=== PATIENT | female | born 1995 | race Asian ===

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

== ENCOUNTER 2017-05-16 12:36 | Emergency (ER) | payer OTHER ==
[2017-05-16 13:31] VITALS: BP 111/66
--- NOTE | 2017-05-16 14:18 | UC ---
Skin Complaint HPI - HPI Summary HPI Summary: PT presents with 10 days lesion to right lower inner lip. Pt states when started was uncomfortable, but has since improved. Pt states has been applying OTC oral mouthwash to lesion. States no longer painful, but is still present. Pt denies sore throat, fever, chills, rash. No cp, sob, abd pain. No h/o similar. No h/o lesions. Pt denies h/o herpes lesions. Pt is a [employer] student, states increased stress. Pt has not seen anyone for these lesions. Pt's medications reviewed this visit - History of Current Complaint Chief Complaint: UCSkin Time Seen by Provider: 05/16/17 13:57 Stated Complaint: MASS ON LIP Hx Obtained From: Patient Hx Last Menstrual Period: 04/21/17 Onset/Duration: Gradual Onset Skin Exposure Onset/Duration: Weeks Ago Onset Severity: Moderate Current Severity: Mild Pain Intensity: 1 Location: Discrete Aggravating Factor(s): Touch Alleviating Factor(s): Nothing Associated Signs & Symptoms: Positive: Negative - Allergy/Home Medications Allergies/Adverse Reactions: Allergies Allergy/AdvReac Type Severity Reaction Status Date / Time Shellfish Allergy Allergy Anaphylatic Verified 05/16/17 12:54 Shock Tree Nuts Allergy Anaphylatic Verified 05/16/17 12:54 Shock PEANUTS Allergy Anaphylatic Uncoded 05/16/17 12:54 Shock Review of Systems Constitutional: Negative Skin: Other - right lower lip Eyes: Negative ENT: Negative All Other Systems Reviewed And Are Negative: Yes PMH/Surg Hx/FS Hx/Imm Hx Previously Healthy: Yes - Surgical History Surgical History: Yes Surgery Procedure, Year, and Place: WISDOM TEETH EXTRACTION - Family History Known Family History: Positive: Cardiac Disease - Social History Occupation: Student Lives: Dormitory/Roommates Alcohol Use: None Substance Use Type: None Smoking Status (MU): Never Smoked Tobacco - Immunization History Most Recent Influenza Vaccination: 2016 Most Recent Tetanus Shot: UTD Physical Exam Triage Information Reviewed: Yes Appearance: Well-Appearing, No Pain Distress, Well-Nourished Vital Signs: Initial Vital Signs Temp 99.5 F 05/16/17 12:49 Pulse 112 05/16/17 12:49 Resp 16 05/16/17 12:49 BP 111/66 05/16/17 12:49 Pulse Ox 100 05/16/17 12:49 Vital Signs Reviewed: Yes Eye Exam: Normal Eyes: Positive: Conjunctiva Clear ENT Exam: Normal ENT: Positive: Pharynx normal, Nasal congestion, TMs normal, Other - right lower , inner lip. Pt with focal area of swelling 3cm. Small vesicle appearance mobile not firm no bleeding drainage. mild TTP Pt without other lesions in mouth Dental Exam: Normal Neck exam: Normal Neck: Positive: Supple Respiratory Exam: Normal Respiratory: Positive: Chest non-tender, Lungs clear, Normal breath sounds, No respiratory distress Cardiovascular Exam: Normal Cardiovascular: Positive: RRR, No Murmur, Pulses Normal Abdominal Exam: Normal Abdomen Description: Positive: Nontender, No Organomegaly, Soft Bowel Sounds: Positive: Present Musculoskeletal Exam: Normal Musculoskeletal: Positive: Strength Intact Neurological Exam: Normal Neurological: Positive: Alert Psychological Exam: Normal Skin Exam: Normal Course/Dx - Course Course Of Treatment: Pt with oral lesion lower right buccal membrane. d/w pt - suspect lesion related to herpes virus. Will draw labs. start valtrex. had extensive conversation with pt regarding herpes virus syndrome. Pt will f/u with [facility]. return precautions discussed. PT comfortable and in agreement with plan - Diagnoses Provider Diagnoses: oral lesion Discharge - Discharge Plan Condition: Stable Disposition: HOME Prescriptions: ValACYclovir (*) [Valtrex 1 GM(*)] 1 gm PO BID #14 tab Patient Education Materials: Oral Herpes Simplex Virus Infections (ED) Referrals: No Primary Care Phys,NOPCP [Primary Care Provider] - [facility] [Outside] Additional Instructions: - The doctor that evaluated you today thinks your lip lesions is caused by a non -sexually transmitted strain of the herpes virus. You had bloodwork drawn today for further evaluation of this. - You have been started on the appropriate anti-viral medication - Stay well hydrated. Drink plenty of non-alcoholic, non-caffinated beverages - These infections are spread by secretions - oral sputum, people coughing etc - okay to alternate ibuprofen (Advil, motrin) and Tylenol every 3 hours as needed for pain - It is recommended you contact [facility] to schedule a follow-up appointment in the next 3-5 days - If you develop fevers, chills, headache, rash, pain or any other concerns - contact [facility] or go to the emergency department
[2017-05-18 15:07] LABS: Herpes Simplex Virus I IgG AB Negative (Negative); Herpes Simplex Virus II IgG AB Negative (Negative)
[2017-05-18 19:25] LABS: Herpes Simplex IgM Screen Negative (Negative)
== END 2017-05-16 14:30 | disposition home or self-care (01) ==
LOC: UCEAST 12:36
DX: K13.70 Unspecified lesions of oral mucosa (principal)
CPT/HCPCS: 86694; 86695; 86696; 99212; G0463

== ENCOUNTER 2017-05-21 17:39 | Emergency (ER) | payer OTHER ==
[2017-05-21] MEDS ORDERED: Tetracaine 0.5% OPTH.SOL 4 ML* 1 DROP BTL BOTH EYES ONE (17:45)
[2017-05-21] MEDS ORDERED: Fluorescein Sodium TOPICAL* 1 MG TEST OPHTHALMIC ONE (17:45)
[2017-05-21 17:46] VITALS: BP 108/65
--- NOTE | 2017-05-21 17:51 | UC ---
Eye Complaint HPI - HPI Summary HPI Summary: Pt presents with mother with multiple complaints. 1) She complains of a productive cough over the last 4-5 days. She has been using her at home nebulizer when she gets SOB with good relief. Has felt feverish at times. Denies sinus congestion, chest pain, earache, ST, abdominal pain, N/V/D/C. She tells me that she has had "walking pneumonia" twice in the past 4-5 years. 2) She complains of b/l eye redness and purulent drainage since this morning. She does not wear contacts and has not been around any metals, love, chemicals , or debris. No recent travel. Denies vision impairment. 3) She complains of a flesh colored growth on her bottom lip, first noticed about 3 weeks ago. She tells me that she was seen by a provider and given valacyclovir, which she has taken for 5 days with no change in her symptoms. There is mild pain. Denies redness, drainage, or bleeding. - History of Current Complaint Chief Complaint: UCEye Stated Complaint: EYE IRRITATION Time Seen by Provider: 05/21/17 17:45 Hx Obtained From: Patient Hx Last Menstrual Period: 04/21/17 Onset/Duration: Sudden Onset Severity Initially: Moderate Severity Currently: Moderate Pain Intensity: 5 Pain Scale Used: 0-10 Numeric Location of Injury: Conjunctiva Aggravating Factor(s): Blinking Alleviating Factor(s): Nothing Associated Signs And Symptoms: Positive: Drainage (Purulent) - Allergies/Home Medications Allergies/Adverse Reactions: Allergies Allergy/AdvReac Type Severity Reaction Status Date / Time Shellfish Allergy Allergy Anaphylatic Verified 05/16/17 12:54 Shock Tree Nuts Allergy Anaphylatic Verified 05/16/17 12:54 Shock PEANUTS Allergy Anaphylatic Uncoded 05/16/17 12:54 Shock PMH/Surg Hx/FS Hx/Imm Hx Previously Healthy: Yes Respiratory History: Asthma - Surgical History Surgical History: Yes Surgery Procedure, Year, and Place: WISDOM TEETH EXTRACTION - Family History Known Family History: Positive: Cardiac Disease - Social History Occupation: Student Lives: Dormitory/Roommates Alcohol Use: None Substance Use Type: None Smoking Status (MU): Never Smoked Tobacco - Immunization History Most Recent Influenza Vaccination: 2016 Most Recent Tetanus Shot: UTD Review of Systems Constitutional: Fever Skin: Negative Eyes: Drainage, Eye Redness ENT: Other - Growth on bottom lip Respiratory: Shortness Of Breath, Cough Cardiovascular: Negative Gastrointestinal: Negative Genitourinary: Negative Neurovascular: Negative Musculoskeletal: Negative Neurological: Negative Psychological: Negative All Other Systems Reviewed And Are Negative: Yes Physical Exam Triage Information Reviewed: Yes Appearance: Well-Appearing, Well-Nourished Vital Signs Reviewed: Yes Eyes: Positive: Conjunctiva Inflamed, Discharge - Purulent discharge in the corners of both eyes., Other: - EOMI. PERRLA. OD/OS/OU 20/20. Fluorescein exam was performed and no dye uptake was appreciated in right or left eye. ENT: Positive: Hearing grossly normal, Pharynx normal, TMs normal, Uvula midline. Negative: Pharyngeal erythema, Nasal congestion, Nasal drainage, TM bulging, TM dull, TM red, Tonsillar swelling, Tonsillar exudate, Sinus tenderness Dental: Positive: Other: - Approx 1cm linear area of mild erythema and edema on the lower mucosa of her lateral bottom lip. There is no ulceration, discharge, or bleeding.. Negative: Percussion Tenderness @, Gross Decay/Caries @, Dental Fracture @, Cellulitis @, Bleeding Neck: Positive: Supple, Nontender, No Lymphadenopathy Respiratory: Positive: Chest non-tender, Lungs clear, No respiratory distress, No accessory muscle use, Wheezing - Throughout Cardiovascular: Positive: RRR, No Murmur, Pulses Normal Neurological: Positive: Alert Psychological: Positive: Age Appropriate Behavior Skin: Negative: rashes, significant lesion(s) Eye Complaint Course/Dx - Course Course Of Treatment: 1) WNL eye exam. Fluorescein exam was performed and no dye uptake was appreciated in right or left eye. Tetracaine drops provided good relief. Cipro drops given at clinic today for use TID for 5-7 days. 2) CXR No radiographic evidence of acute cardiopulmonary disease. Continue at home nebulizer prn cough/sob. 3) Nonhealing aphthous stomatitis - triamcinolone topical paste BID - Differential Dx/Diagnosis Differential Diagnosis/HQI/PQRI: Conjunctivitis, Corneal Abrasion, Keratitis, Other - Pneumonia. Bronchitis. Asthma. aphthous stomatitis Provider Diagnoses: Conjunctivitis b/l. aphthous stomatitis. Bronchitis Discharge - Discharge Plan Condition: Stable Disposition: HOME Prescriptions: Triamcinolone Acetonide (Mouth [Triamcinolone Acetonide] 0.1 % MT BID #1 tube Patient Education Materials: Canker Sores (ED), Conjunctivitis (ED) Referrals: No Primary Care Phys,NOPCP [Primary Care Provider] - Additional Instructions: 1) Ciprofloxacin one drop each eye three times a day for 5-7 days or until resolved. Use no longer than 7 days 2) Continue using your nebulizer as needed at home for coughing and shortness of breath 3) Triamcinolone 01.% topical paste for use on the sore in your mouth twice a day for no more than 7 days If you develop a fever, SOB, chest pain, new or worsening symptoms - please call your PCP or go to the ED.
[2017-05-21] MEDS ORDERED: Ciprofloxacin 0.3% OPTH.SOL* 2.5 ML BTL ONE (18:33)
[2017-05-21] MEDS ORDERED: Ciprofloxacin 0.3% OPTH.SOL* 2.5 ML BTL BOTH EYES ONE (18:33)
--- NOTE | 2017-05-21 18:50 | RAD ---
INDICATION: Cough COMPARISON: None TECHNIQUE: PA and lateral views of the chest were obtained. FINDINGS: The heart and mediastinum are normal in size and contour. The lungs are grossly clear. There is no evidence of large pleural effusion. Visualized bones are normal for the patient's age. There is no radiographic evidence of free air beneath the diaphragm IMPRESSION: No radiographic evidence of acute cardiopulmonary disease.
== END 2017-05-21 18:55 | disposition home or self-care (01) ==
LOC: UCEAST 17:39
DX: H10.9 Unspecified conjunctivitis (principal); K12.0 Recurrent oral aphthae; J40 Bronchitis, not specified as acute or chronic
CPT/HCPCS: 71020; 99212; A9270-GY; G0463

== ENCOUNTER 2017-05-28 15:08 | Emergency (ER) | payer OTHER ==
[2017-05-28 15:44] VITALS: BP 101/61
--- NOTE | 2017-05-28 17:11 | UC ---
Nico Carrillo SooYoung, scribed for Ryan Mercer MD on 05/28/17 at 1606 . Skin Complaint HPI - HPI Summary HPI Summary: A 22 y/o F presents to [facility] c/o sore to lower lip intial onset approx one month ago, but worsening recently. Pt was seen at [facility] on 05/16 and given ABX and cream. She states the ABX did not help her, but the cream did start to make the sore smaller. Recently, the sore has become more painful. Aggravating factors: eating. - History of Current Complaint Chief Complaint: [facility] Time Seen by Provider: 05/28/17 16:03 Stated Complaint: LIP INJURY Hx Obtained From: Patient, Family/Wildlife Technician Hx Last Menstrual Period: 05/01/17 Onset/Duration: Gradual Onset, Lasting Weeks, Still Present Timing: Constant Onset Severity: Moderate Current Severity: Moderate Pain Intensity: 5 Pain Scale Used: 0-10 Numeric Location: Face - R-side lower lip Character: Pain Aggravating Factor(s): Touch, Other - eating - Allergy/Home Medications Allergies/Adverse Reactions: Allergies Allergy/AdvReac Type Severity Reaction Status Date / Time Shellfish Allergy Allergy Anaphylatic Verified 05/16/17 12:54 Shock Tree Nuts Allergy Anaphylatic Verified 05/16/17 12:54 Shock PEANUTS Allergy Anaphylatic Uncoded 05/16/17 12:54 Shock Review of Systems Constitutional: Negative Skin: Other - sore to R lower lip All Other Systems Reviewed And Are Negative: Yes PMH/Surg Hx/FS Hx/Imm Hx Previously Healthy: Yes Cardiovascular History: Other Other Cardiovascular History: neg: HTN Respiratory History: Asthma - Surgical History Surgical History: Yes Surgery Procedure, Year, and Place: WISDOM TEETH EXTRACTION - Family History Known Family History: Positive: Cardiac Disease - Social History Occupation: Student Lives: With Family Alcohol Use: None Substance Use Type: None Smoking Status (MU): Never Smoked Tobacco - Immunization History Most Recent Influenza Vaccination: 2016 Most Recent Tetanus Shot: UTD Physical Exam Triage Information Reviewed: Yes Appearance: Well-Appearing, No Pain Distress Vital Signs: Initial Vital Signs Temp 98.8 F 05/28/17 15:39 Pulse 79 05/28/17 15:39 Resp 15 05/28/17 15:39 BP 101/61 05/28/17 15:39 Pulse Ox 100 11/26/17 15:39 Vital Signs Reviewed: Yes Eyes: Positive: Other: - EOMI, TRIPP ENT Exam: Normal Neck: Positive: Supple, Nontender Respiratory: Positive: Lungs clear, Normal breath sounds Cardiovascular: Positive: RRR Abdomen Description: Positive: Nontender, Soft Bowel Sounds: Positive: Present Musculoskeletal Exam: Normal Musculoskeletal: Positive: ROM Intact Neurological Exam: Normal Neurological: Positive: Alert - A&Ox3, Muscle Tone Normal Psychological: Positive: Normal Response To Family, Age Appropriate Behavior Skin: Positive: Other - On R lower lip there is a papule that is 8mm by 4mm, proximal aspect is translucent. Otherwise, skin is warm, color reflects adequate perfusion, dry. Course/Dx - Course Course Of Treatment: A 22 y/o F presents to [facility] c/o sore to lower lip intial onset approx one month ago, but worsening recently. Pt was seen at [facility] on 05/16 and given ABX and cream. She states the ABX did not help her, but the cream did start to make the sore smaller. Recently, the sore has become more painful. Aggravating factors: eating. Blood pressure is within normal limits. Medications reviewed. PROBABLE MUCOCELE. THIS WAS DISCUSSED WITH THE PATIENT AND HER MOTHER. SHE WILL F/U WITH ENT EITHER AT HOME ([place]) OR HERE IN [place]. - Diagnoses Provider Diagnoses: LOWER LIP SWELLING. Discharge - Discharge Plan Condition: Stable Disposition: HOME Referrals: No Primary Care Phys,NOPCP [Primary Care Provider] - [facility] [Provider Group] Additional Instructions: FOLLOW UP WITH ENT EITHER HERE IN [place] OR AT HOME FOR WHAT APPEARS TO BE A MUCOCELE ON YOUR LOWER LIP. GET RECHECKED FOR ANY WORSENING OF YOUR CONDITION OR QUESTIONS OR CONCERNS. The documentation as recorded by the Nico manzo SooYoung accurately reflects the service I personally performed and the decisions made by me, Ryan Mercer MD.
== END 2017-05-28 16:28 | disposition home or self-care (01) ==
LOC: UCEAST 15:08
DX: R22.0 Localized swelling, mass and lump, head (principal)
CPT/HCPCS: 99211; G0463

== ENCOUNTER 2017-10-25 12:22 | Emergency (ER) | payer OTHER ==
[2017-10-25 12:38] VITALS: BP 127/79
--- NOTE | 2017-10-25 14:06 | ED ---
Influenza-Like Illness - HPI Summary HPI Summary: 22 yo maur[place] female h/o asthma c/o cough and SOB x few days associated with body aches and chills x 1 day, sx worsening in spite of taking her rescue inhaler - History of Current Complaint Chief Complaint: UCRespiratory Time Seen by Provider: 10/25/17 13:15 Severity: Moderate Associated Signs & Symptoms: Negative, Myalgia, Cough - Allergy/Home Medications Allergies/Adverse Reactions: Allergies Allergy/AdvReac Type Severity Reaction Status Date / Time shellfish derived Allergy Anaphylatic Verified 10/25/17 12:39 Shock Tree Nuts Allergy Anaphylatic Verified 10/25/17 12:39 Shock PEANUTS Allergy Anaphylatic Uncoded 10/25/17 12:39 Shock Home Medications: Home Medications EPINEPHrine [Epipen] 0.3 mg IJ 10/25/17 [History] PMH/Surg Hx/FS Hx/Imm Hx Previously Healthy: Yes Endocrine/Hematology History: Denies: Hx Diabetes, Hx Thyroid Disease Cardiovascular History: Denies: Hx Hypertension Respiratory History: Reports: Hx Asthma Denies: Hx Chronic Obstructive Pulmonary Disease (COPD) GI History: Denies: Hx Ulcer - Surgical History Surgery Procedure, Year, and Place: WISDOM TEETH EXTRACTION Infectious Disease History: No Infectious Disease History: Denies: Hx Clostridium Difficile, Hx Hepatitis, Hx Human Immunodeficiency Virus (HIV), Hx of Known/Suspected MRSA, History Other Infectious Disease, Traveled Outside the [place] in Last 30 Days - Family History Known Family History: Positive: Cardiac Disease - Social History Alcohol Use: None Substance Use Type: Reports: None Hx Tobacco Use: No Smoking Status (MU): Never Smoked Tobacco Review of Systems Positive: Chills Eyes: Negative ENT: Negative Cardiovascular: Negative Positive: Shortness Of Breath, Cough Gastrointestinal: Negative Musculoskeletal: Negative Skin: Negative Neurological: Negative All Other Systems Reviewed And Are Negative: Yes Physical Exam Triage Information Reviewed: Yes Vital Signs On Initial Exam: Initial Vitals Temp Pulse Resp BP Pulse Ox 36.6 C 100 18 127/79 99 10/25/17 12:35 10/25/17 12:35 10/25/17 12:35 10/25/17 12:35 10/25/17 12:35 Vital Signs Reviewed: Yes Appearance: Positive: No Pain Distress Skin: Positive: Warm Eyes: Positive: Normal ENT: Positive: Normal ENT inspection Neck: Positive: Supple Respiratory/Lung Sounds: Positive: Rhonchi - with cough. Negative: Rales, Stridor, Wheezes Cardiovascular: Positive: Normal, RRR Abdomen Description: Positive: Nontender Musculoskeletal: Positive: Normal Neurological: Positive: Normal Diagnostics - Vital Signs Vital Signs Temp Pulse Resp BP Pulse Ox 10/25/17 12:35 36.6 C 100 18 127/79 99 - Laboratory Lab Statement: Any lab studies that have been ordered have been reviewed, and results considered in the medical decision making process. Flu Symptom Course/Dx - Course Course Of Treatment: rapid flu negative, take meds as directed for asthma exacerbation - Diagnoses Provider Diagnoses: Asthma exacerbation, Cough Discharge - Sign-Out/Discharge Documenting (check all that apply): Discharge/Admit/Transfer - Discharge Plan Condition: Stable Disposition: HOME Prescriptions: Azithromycin TAB* [Zithromax TAB (Z-IGNACIO) 250 mg #6 tabs] 2 tab PO .TODAY, THEN 1 DAILY #1 ignacio predniSONE TAB* [Deltasone TAB*] 20 mg PO DAILY 5 Days #5 tab Patient Education Materials: Asthma (ED) Referrals: No Primary Care Phys,NOPCP [Primary Care Provider] - Additional Instructions: take medication as directed - Billing Disposition and Condition Condition: STABLE Disposition: HOME
== END 2017-10-25 14:24 | disposition home or self-care (01) ==
LOC: UCEAST 12:22
DX: J45.901 Unspecified asthma with (acute) exacerbation (principal); R05 Cough; M79.1 Myalgia
CPT/HCPCS: 87502; 99212; G0463

== ENCOUNTER 2017-12-14 18:02 | Emergency (ER) | payer OTHER ==
[2017-12-14 21:15] LABS: ABS Basophils 0.1 10^3/ul (0-0.2); ABS Eosinophils 0.2 10^3/ul (0-0.6); ABS Lymphocytes 2.2 10^3/ul (1.0-4.8); ABS Monocytes 0.5 10^3/ul (0-0.8); ABS Neutrophils 3.8 10^3/ul (1.5-7.7); ABS Nucleated RBC 0 10^3/ul; Eosinophil % 2.5 % (0-6); Hematocrit 42 % (35-47); Hemoglobin 14.2 g/dl (12.0-16.0); Lymphocyte % 32.6 % (25-47); Mean Corpuscular HGB Conc 34 g/dl (31-36); Mean Corpuscular Hemoglobin 29 pg (27-31); Mean Corpuscular Volume 84 fL (80-97); Mean Platelet Volume 8.3 um3 (7.4-10.4); Nucleated Red Blood Cells % 0.1; Platelet Count 236 10^3/ul (150-450); Red Blood Count 4.96 10^6/ul (4.00-5.40); Red Cell Distribution Width 13 % (10.5-15); White Blood Count 6.8 10^3/ul (3.5-10.8)
[2017-12-14 22:53] VITALS: BP 101/56
--- NOTE | 2017-12-15 05:43 | ED ---
Tracey Carrillo Elizabeth, scribed for Avinash Keene MD on 12/14/17 at 2058 . HPI Chest Pain - HPI Summary HPI Summary: This patient is a 22 year old F presenting to [facility] accompanied by her mother with a chief complaint of severe chest pain and palpitations starting at 18:00 this evening while in the shower.. The patient reports that the pain began suddenly when she was in the shower. The patient notes that her resting HR is typically around 80 bpm, but when she took her pulse at 18:00 was 129 bpm. Patient reports hx of low BP. The patient rates the pain 2/10 in severity. Symptoms aggravated by nothing. Symptoms alleviated by nothing. Patient reports fatigue. The patient also notes that she feels like she has developed new food allergies and reports increased dry mouth and swelling in her throat. Patient denies change in diet. - History of Current Complaint Chief Complaint: EDChestPainROMI Time Seen by Provider: 12/14/17 20:28 Hx Obtained From: Patient, Family/Supervisor Machine Workers - patient's mother Hx Last Menstrual Period: 10/23/17 Onset/Duration: Started Hours Ago, Atraumatic, Still Present Time of Onset: 18:00 Timing: Lasting Hours Initial Severity: Severe Current Severity: Mild Pain Intensity: 2 Pain Scale Used: 0-10 Numeric Character: Fast Aggravating Factor(s): Nothing Alleviating Factor(s): Nothing Associated Signs and Symptoms: Positive: Chest Pain, Other: - fatigue - Allergy/Home Medications Allergies/Adverse Reactions: Allergies Allergy/AdvReac Type Severity Reaction Status Date / Time sesame seed Allergy Anaphylatic Verified 12/14/17 18:15 Shock shellfish derived Allergy Anaphylatic Verified 12/14/17 18:15 Shock Tree Nuts Allergy Anaphylatic Verified 12/14/17 18:15 Shock PEANUTS Allergy Anaphylatic Uncoded 10/25/17 12:39 Shock Home Medications: Home Medications Cholecalciferol TAB* [Vitamin D TAB*] 1,000 unit PO DAILY 12/14/17 [History Confirmed 12/14/17] EPINEPHrine SYR* [EPINEPHphrine SYR*] 0.1 mg IM ONCE PRN 12/14/17 [History Confirmed 12/14/17] Ibuprofen TAB* [Advil TAB*] 200 mg PO Q6H PRN 12/14/17 [History Confirmed ] Levalbuterol HFA INHALER* [Xopenex Hfa Inhaler*] 2 puff INH QID PRN 12/14/17 [ History Confirmed 12/14/17] diPHENhydraMINE PO* [Benadryl PO 25 MG TAB*] 25 mg PO Q6H PRN 12/14/17 [History Confirmed 12/14/17] PMH/Surg Hx/FS Hx/Imm Hx Endocrine/Hematology History: Denies: Hx Diabetes, Hx Thyroid Disease Cardiovascular History: Denies: Hx Hypertension Respiratory History: Reports: Hx Asthma Denies: Hx Chronic Obstructive Pulmonary Disease (COPD) GI History: Denies: Hx Ulcer - Surgical History Surgery Procedure, Year, and Place: WISDOM TEETH EXTRACTION Infectious Disease History: No Infectious Disease History: Denies: Hx Clostridium Difficile, Hx Hepatitis, Hx Human Immunodeficiency Virus (HIV), Hx of Known/Suspected MRSA, History Other Infectious Disease, Traveled Outside the [place] in Last 30 Days - Family History Known Family History: Positive: Cardiac Disease, Other - thyroid problems - Social History Alcohol Use: None Substance Use Type: Reports: None Hx Tobacco Use: No Smoking Status (MU): Never Smoked Tobacco Review of Systems Negative: Fever ENT: Other - dry mouth Positive: Sore Throat - throat tightness Positive: Palpitations - fast HR, Chest Pain All Other Systems Reviewed And Are Negative: Yes Physical Exam - Summary Physical Exam Summary: Appearance: Well-appearing, no distress, Well-nourished Skin: Warm, color reflects adequate perfusion Head: Normal Head/Face inspection Eyes: Conjunctiva clear ENT: Normal inspection Neck: Supple, no nodes, no JVD. Respiratory: Lungs clear, Normal breath sounds, no respiratory distress Cardio: RRR, No murmur, pulses normal, brisk capillary refill Abdomen: soft, nontender, no guarding, no rebound Bowel sounds: present Musculoskeletal: Strength Intact/ ROM intact. No calf tenderness. No edema. Neuro: Alert, muscle tone normal, facial symmetry, speech normal, sensory/motor intact Psychological: Normal Triage Information Reviewed: Yes Vital Signs On Initial Exam: Initial Vitals Temp Pulse Resp BP Pulse Ox 98.5 F 94 16 128/97 98 12/14/17 18:09 12/14/17 18:09 12/14/17 18:09 12/14/17 18:09 12/14/17 18:09 Vital Signs Reviewed: Yes Diagnostics - Vital Signs Vital Signs Temp Pulse Resp BP Pulse Ox 12/14/17 20:20 89 12/14/17 18:09 98.5 F 94 16 128/97 98 - Laboratory Lab Results: Lab Results 12/14/17 12/14/17 Range/Units 21:06 21:06 WBC 6.8 (3.5-10.8) 10^3/ul RBC 4.96 (4.00-5.40) 10^6/ul Hgb 14.2 (12.0-16.0) g/dl Hct 42 (35-47) % MCV 84 (80-97) fL MCH 29 (27-31) pg MCHC 34 (31-36) g/dl RDW 13 (10.5-15) % Plt Count 236 (150-450) 10^3/ul MPV 8.3 (7.4-10.4) um3 Neut % (Auto) 55.9 (38-83) % Lymph % (Auto) 32.6 (25-47) % [place] % (Auto) 7.8 H (0-7) % Eos % (Auto) 2.5 (0-6) % Baso % (Auto) 1.2 (0-2) % Absolute Neuts (auto) 3.8 (1.5-7.7) 10^3/ul Absolute Lymphs (auto) 2.2 (1.0-4.8) 10^3/ul Absolute Monos (auto) 0.5 (0-0.8) 10^3/ul Absolute Eos (auto) 0.2 (0-0.6) 10^3/ul Absolute Basos (auto) 0.1 (0-0.2) 10^3/ul Absolute Nucleated RBC 0 10^3/ul Nucleated RBC % 0.1 Sodium 136 (135-145) mmol/L Potassium 3.8 (3.5-5.0) mmol/L Chloride 102 (101-111) mmol/L Carbon Dioxide 28 (22-32) mmol/L Anion Gap 6 (2-11) mmol/L BUN 17 (6-24) mg/dL Creatinine 0.87 (0.51-0.95) mg/dL Est GFR ( Amer) 106.8 (>60) Est GFR (Non-Af Amer) 83.0 (>60) BUN/Creatinine Ratio 19.5 (8-20) Glucose 91 (70-100) mg/dL Calcium 9.7 (8.6-10.3) mg/dL Magnesium 1.8 L (1.9-2.7) mg/dL Total Bilirubin 0.30 (0.2-1.0) mg/dL AST 17 (13-39) U/L ALT 10 (7-52) U/L Alkaline Phosphatase 47 (34-104) U/L Troponin I 0.00 (<0.04) ng/mL Total Protein 6.9 (6.4-8.9) g/dL Albumin 3.9 (3.2-5.2) g/dL Globulin 3.0 (2-4) g/dL Albumin/Globulin Ratio 1.3 (1-3) TSH 1.65 (0.34-5.60) mcIU/mL Result Diagrams: 12/14/17 21:06 12/14/17 21:06 Lab Statement: Any lab studies that have been ordered have been reviewed, and results considered in the medical decision making process. - EKG 18:13 Cardiac Rate: NL - at 82 bpm EKG Rhythm: Sinus Rhythm EKG Interpretation: NSR, nml axis, nml interval, no ST or T wave changes Re-Evaluation - Re-Evaluation First Eval Change: Improved - Pt with no tachycardia in the ED. pt Hr 80's, Pt continues to be asymptomatic. I suspect some component of anxiety, however pt with plan to f/u with her PCP in 2-3 days for f/u evaluation on arrival home. Chest Pain Course/Dx - Chest Pain Differential Diagnosis/HQI/PQRI: ACS, Angina, Chest Wall, GI Disease, Pulmonary Embolism - Diagnoses Provider Diagnoses: Palpitations Discharge - Sign-Out/Discharge Documenting (check all that apply): Discharge/Admit/Transfer - Discharge Plan Condition: Stable Disposition: HOME Discharge Disposition Comment: discharge home Patient Education Materials: Heart Palpitations (ED) Referrals: [facility] [place] PHYSICIAN REFERRAL [Outside] - 2 Days Additional Instructions: Follow up with primary care physician in 2-3 days. Return to the emergency department with any new or worsening symptoms. - Billing Disposition and Condition Condition: STABLE Disposition: Home The documentation as recorded by the Tracey manzo Elizabeth accurately reflects the service I personally performed and the decisions made by me, Avinash Keene MD.
== END 2017-12-14 22:51 | disposition home or self-care (01) ==
LOC: ED 18:02
DX: R00.2 Palpitations (principal)
CPT/HCPCS: 36415; 80053; 83735; 84443; 84484; 85025; 93005; 99282

== ENCOUNTER 2018-03-27 17:55 | Emergency (ER) | payer OTHER ==
--- OUTSIDE RECORDS SUMMARY | 2018-03-27 18:01 | XMS REPORT ---
:1995 External Reference #:[id number] Author Organization [facility] Address [address] [place] [address] Phone [phone] Care Team Providers Name Role Phone Trevor Abel MD Care Team Information [employer] Unavailable Payers Type Date Identification Numbers Payment Provider Subscriber Commercial Policy Number: [id number] [employer] Haleigh Sev[employer] Number: [id number] [address] [address] PayID: [id number] [place] [address] Problems Date Description Provider Status Onset: 12/08/2017 Allergy to other foods Trevor Abel MD Active Onset: 12/22/2017 Uncomplicated moderate persistent MANDO Robbins Active asthma Onset: 12/22/2017 Allergic rhinitis MANDO Robbins Active Family History Date Family Member(s) Problem(s) Comments General Asthma General Seasonal Allergies General Allergies, Food dye's and preservatives Social History Type Date Description Comments Smoke-Free Home is smoke-free Smoke-Free Work is smoke-free Pets None Smoking Patient has never smoked Allergies, Adverse Reactions, Alerts Date Description Reaction Status Severity Comments 03/07/2018 Asmanex active Nightmares, depression, hallucination 12/08/2017 NKDA inactive Medications Medication Date Status Form Strength Qnty SIG Indications Ordering Provider Flonase 12/22 Active Suspension 27.5mcg/S 15.80 one spray in J30.89 Trevor Sensimist /2018 pray 0ml each nostril Beltran Abel MD daily Lizzeth 12/22 Active Tablets 180mg 30tab take one tab J30.89 s by mouth Beltran Abel MD daily in the morning. Auvi-Q 12/08 Active Solution 0.3mg/0.3 4unit use as Z91.018 Auto-Inject ML s directed Beltran Abel MD Xopenex HFA Active Aerosol 45mcg/Act 2 puffs Unknown /0000 every 4 as needed Xopenex Active Nebulizer 1.25mg/3M 72ml use 3 L milliliters Beltran Abel MD in nebulizer four times a day as needed asthma Epipen 2-Juan Antonio Active Solution 0.3mg/0.3 as directed Auto-Inject ML Benadryl Active Tablets 25mg 1/2 tab Unknown Allergy / every day as needed Vitamin D Active Capsules 1000Unit Unknown (Cholecalcif /0000 frances) Asmanex HFA 01/01 Hx Aerosol 100mcg/Ac 1unit 2 puff twice Z91.018 t s a day Beltran Abel MD - 03/07 Advair HFA 12/22 Hx Aerosol 230-21mcg 12uni 1 puff twice Z91.018 /Act ts a day Beltran Abel MD - 01/01 No Active 12/08 Hx Unknown Medications - 12/08 Vital Signs Date Vital Result Comment 03/07/2018 BP Systolic 100 mmHg BP Diastolic 74 mmHg Height 64 inches 5'4" Weight 134.00 lb BMI (Body Mass Index) 23.0 kg/m2 Heart Rate 82 /min Respiratory Rate 18 /min Body Temperature 98.4 F O2 % BldC Oximetry 99 % 01/01/2018 BP Systolic 104 mmHg BP Diastolic 68 mmHg Height 64 inches 5'4" Weight 134.00 lb BMI (Body Mass Index) 23.0 kg/m2 Heart Rate 100 /min Respiratory Rate 16 /min Body Temperature 97.3 F O2 % BldC Oximetry 98 % 12/22/2017 BP Systolic 102 mmHg BP Diastolic 64 mmHg Height 64 inches 5'4" Weight 134.00 lb BMI (Body Mass Index) 23.0 kg/m2 Heart Rate 84 /min Respiratory Rate 18 /min Body Temperature 99.8 F O2 % BldC Oximetry 99 % 12/08/2017 BP Systolic 105 mmHg BP Diastolic 77 mmHg Height 64 inches 5'4" Weight 134.00 lb BMI (Body Mass Index) 23.0 kg/m2 Heart Rate 88 /min Respiratory Rate 16 /min Body Temperature 97.3 F O2 % BldC Oximetry 99 % Results Test Date Test Result H/L Range Note Order 01/01/2018 Nitric Oxide <pending> Order 12/08/2017 Epinephrine Injector Training <pending> Procedures Date CPT Code Description Status 01/01/2018 66431 Nitric Oxide Gas Determination Completed 01/01/2018 52543 Nitric Oxide Gas Determination Completed 12/22/2017 18959 Nitric Oxide Gas Determination Completed 12/22/2017 71352 Nitric Oxide Gas Determination Completed 12/22/2017 57708 Allergy Tests Percutaneous W/ Allergenic Extracts Completed 12/22/2017 17311 Bronchodilation Responsiveness Spirometry Pre/Post Completed Bronchodil Adm 12/22/2017 19530 Bronchodilation Responsiveness Spirometry Pre/Post Completed Bronchodil Adm 12/08/2017 38582 Education/Training PT Self-Management Each 30Minutes Completed Indiv PT Encounters Type Date Location Provider CPT E/M Dx Office Visit 01/01/2018 11:30a MANDO Stevens 00979 Z91.018 J45.40 J30.89 Office Visit 12/22/2017 1:30p MANDO Stevens 74270 Z91.018 J45.40 J30.89 Office Visit 12/08/2017 3:30[place] [address] Z91.018 Plan of Care Future Appointment(s):06/22/2018 1:00 pm - MANDO Robbins at [place]
--- OUTSIDE RECORDS SUMMARY | 2018-03-27 18:01 | XMS REPORT ---
:1995 External Reference #:[id number] Author Organization [facility] Address [address] [place] [address] Phone [phone] Care Team Providers Name Role Phone Trevor Abel MD Care Team Information Physicians Assistant Unavailable Payers Type Date Identification Numbers Payment Provider Subscriber Commercial Policy Number: [id number] [employer] Haleigh [employer] Group Number: [id number] [address] [address] PayID: [id number] [place] [address] Problems Date Description Provider Status Onset: 12/08/2017 [...] Form Strength Qnty SIG Indications Ordering Provider Singulair 03/07 Active Tablets 10mg 30tab 10mg by Z91.018 s mouth daily Beltran Abel MD at bedtime Singulair 01/01 Active Tablets 10mg 30tab 10mg by s mouth daily Beltran Abel MD at bedtime Flonase 12/22 Active Suspension 27.5mcg/S 15.80 one spray in [address] [place] [address] Sensimist /2017 pray 0ml each nostril Beltran Abel MD daily Lizzeth 12/22 Active Tablets 180mg 30tab take one tab [facility] Allergy s by mouth Beltran Abel MD daily [...] / every day as needed Vitamin D 00 Active Capsules 1000Unit Unknown (Cholecalcif /0000 frances) Asmanex HFA 01/01 Hx Aerosol 100mcg/Ac 1unit 2 puff twice Z91.018 t s a day Beltran Abel MD - 03/07 Advair HFA 12/22 Hx Aerosol 230-21mcg 12uni 1 puff twice Z91.018 /Act ts a day Beltran Abel MD - 01/01 No Active 12/08 Hx Unknown Medications /2017 - 12/08 Vital Signs Date Vital Result [...] Procedures Date CPT Code Description Status 01/01/2018 15011 Nitric Oxide Gas Determination Completed 01/01/2018 44745 Nitric Oxide Gas Determination Completed 12/22/2017 96265 Nitric Oxide Gas Determination Completed 12/22/2017 19229 Nitric Oxide Gas Determination Completed 12/22/2017 94233 Allergy Tests Percutaneous W/ Allergenic Extracts Completed 12/22/2017 38023 Bronchodilation Responsiveness Spirometry Pre/Post Completed Bronchodil Adm 12/22/2017 31294 Bronchodilation Responsiveness Spirometry Pre/Post Completed Bronchodil Adm 12/08/2017 76539 Education/Training PT Self-Management Each 30Minutes Completed Indiv PT Encounters Type Date Location Provider CPT E/M Dx Office Visit 03/07/2018 4:30p MANDO Stevens 38637 Z91.018 J45.40 J30.89 Office Visit 01/01/2018 11:30a MANDO Stevens 43262 Z91.018 J45.40 J30.89 Office Visit 12/22/2017 1:30p MANDO Stevens 52118 Z91.018 J45.40 J30.89 Office Visit 12/08/2017 3:30[place] [address] Z91.018 Plan of Care Future Appointment(s):03/29/2018 8:30 am - Kanchan Hendricks NP at [id number] 1:00 pm - MANDO Robbins at [id number]/07/2018 - Juloi Allen, PAZ91.018 Allergy to other foodsNew Medication:Singulair 10 mgJ45.40 Moderate persistent asthma, uncomplicatedComments:Patient has discontinued use of Asmanex. Patient still has Xopenex to use for breakthrough chest symptoms. Patient will start Singulair as prescribed. Patient to make an appointment with this officein 2 weeks to see if any improvement in her breathing. At that time we will also do a PFT and Niox test.Patient to continue regular use of environmental controls.Recommend patient schedule 20-30 minute aerobic exercise on a daily basis.Follow up:2 weeks, PFT and NIOX efbpvV57.89 Other allergic rhinitis
--- NOTE | 2018-03-28 14:46 | UC ---
- Progress Note Progress Note: LWBS. NO IMAGING Discharge - Sign-Out/Discharge Documenting (check all that apply): Post-Discharge Follow Up All imaging exams completed and their final reports reviewed: No Studies - Discharge Plan Condition: Stable Disposition: LEFT WITHOUT BEING SEEN Referrals: No Primary Care Phys,NOPCP [Primary Care Provider] - - Billing Disposition and Condition Condition: STABLE Disposition: Left Without Being Seen
== END 2018-03-27 18:50 | disposition left against medical advice (07) ==
LOC: UCEAST 17:55
DX: R10.9 Unspecified abdominal pain (principal); Z53.21 Procedure and treatment not carried out due to patient leaving prior to being seen by health care provider

== ENCOUNTER 2018-05-03 11:35 | Emergency (ER) | payer OTHER ==
[2018-05-03 11:43] VITALS: BP 115/78
--- NOTE | 2018-05-03 12:07 | UC ---
Eye Complaint HPI - HPI Summary HPI Summary: 22 year old female presents stating she awoke this morning with both her eyes crusted shut. Associated with bilateral eye erythema, itching, purulent drainage , mild nasal congestion without drainage, and an occasional dry cough. She does not wear contacts. Denies fever, chills, visual disturbances, sinus pain or pressure, sore throat, ear pain, chest pain, shortness of breath, or wheezing. - History of Current Complaint Chief Complaint: UCEye Stated Complaint: EYE ISSUE COUGH Time Seen by Provider: 05/03/18 11:55 Hx Obtained From: Patient Hx Last Menstrual Period: 03/27/18 Pain Intensity: 0 - Allergies/Home Medications Allergies/Adverse Reactions: Allergies Allergy/AdvReac Type Severity Reaction Status Date / Time sesame seed Allergy Anaphylatic Verified 05/03/18 11:43 Shock shellfish derived Allergy Anaphylatic Verified 05/03/18 11:43 Shock Tree Nuts Allergy Anaphylatic Verified 05/03/18 11:43 Shock PEANUTS Allergy Anaphylatic Uncoded 05/03/18 11:43 Shock PMH/Surg Hx/FS Hx/Imm Hx Previously Healthy: Yes Respiratory History: Asthma - Surgical History Surgical History: Yes Surgery Procedure, Year, and Place: WISDOM TEETH EXTRACTION - Family History Known Family History: Positive: Cardiac Disease, Other - thyroid problems - Social History Occupation: Student Lives: Dormitory/Roommates Alcohol Use: None Substance Use Type: None Smoking Status (MU): Never Smoked Tobacco - Immunization History Most Recent Influenza Vaccination: 2016 Most Recent Tetanus Shot: UTD Review of Systems Constitutional: Negative Skin: Negative Eyes: Drainage, Eye Redness ENT: Other - mild nasal congestion Respiratory: Cough - occasion dry cough Cardiovascular: Negative Is Patient Immunocompromised?: No All Other Systems Reviewed And Are Negative: Yes Physical Exam Triage Information Reviewed: Yes Appearance: Well-Appearing, No Pain Distress, Well-Nourished Vital Signs: Initial Vital Signs Temp 98 F 05/03/18 11:41 Pulse 94 05/03/18 11:41 Resp 16 05/03/18 11:41 BP 115/78 05/03/18 11:41 Pulse Ox 100 05/03/18 11:41 Vital Signs Reviewed: Yes Eyes: Positive: Conjunctiva Inflamed - bilateral, Discharge - purulent bilateral ENT: Positive: Hearing grossly normal, Nasal congestion, TMs normal, Uvula midline. Negative: Pharyngeal erythema, Nasal drainage, Tonsillar swelling, Tonsillar exudate, Sinus tenderness Neck: Positive: Supple, Nontender, No Lymphadenopathy Respiratory: Positive: Lungs clear, Normal breath sounds, No respiratory distress Cardiovascular: Positive: RRR, No Murmur Neurological: Positive: Alert Skin Exam: Normal Eye Complaint Course/Dx - Course Course Of Treatment: 22 year old female with onset of bilateral conjunctival erythema, discharge, itching, and crusting this morning. Afebrile. Exam consistent with a bilateral bacterial conjunctivitis. Will treat with Polytrim ophthalmic 2 drops QID x 5 days. She is to follow up with PCP or at [facility] if symptoms persist. - Differential Dx/Diagnosis Provider Diagnoses: Bilateral bacterial conjunctivitis Discharge - Sign-Out/Discharge Documenting (check all that apply): Patient Departure All imaging exams completed and their final reports reviewed: No Studies - Discharge Plan Condition: Stable Disposition: HOME Prescriptions: Polymyx/Trimethoprim OPTH* [Polytrim OPHTH*] 2 drop BOTH EYES QID 5 Days #1 btl Patient Education Materials: Conjunctivitis (ED) Forms: *School Release Referrals: No Primary Care Phys,NOPCP [Primary Care Provider] - Additional Instructions: Start Polytrim Ophthalmic 2 drops both eyes 4 times a day for 5 days. Bacterial conjunctivitis is highly contagious. It is recommended that you do not attend class until you have been on the eye drops for 24 hours. Do not share washcloths or towels and be sure to wash these after each use. I would recommend that you change your pillow case each morning until you have completed your treatment to avoid reinfection. Follow up with your primary care provider or at [facility] if symptoms do not improve. - Billing Disposition and Condition Condition: STABLE Disposition: Home
== END 2018-05-03 12:26 | disposition home or self-care (01) ==
LOC: UCEAST 11:35
DX: H10.33 Unspecified acute conjunctivitis, bilateral (principal); Z91.018 Allergy to other foods; Z91.010 Allergy to peanuts; Z91.013 Allergy to seafood
CPT/HCPCS: 99212; G0463

== ENCOUNTER 2018-05-09 11:28 | Emergency (ER) | payer OTHER ==
--- NOTE | 2018-05-09 13:19 | UC ---
Respiratory Complaint HPI - HPI Summary HPI Summary: 22 y/o female presents to the urgent care c/o pt has a hx of asthma and has been coughing more than normal. pt has had increase use of inhaler. pt states about 1 week ago she began to cough and states now her inhaler is not helping with cough. pt has decreased appotite and increased hunt and feelings of being tires. pt is concerned that she has bronchitis. - History of Current Complaint Chief Complaint: UCRespiratory Stated Complaint: COUGH Time Seen by Provider: 05/09/18 13:18 Hx Obtained From: Patient Hx Last Menstrual Period: 05/04/18 Pain Intensity: 0 - Allergies/Home Medications Allergies/Adverse Reactions: Allergies Allergy/AdvReac Type Severity Reaction Status Date / Time sesame seed Allergy Anaphylatic Verified 05/09/18 11:38 Shock shellfish derived Allergy Anaphylatic Verified 05/09/18 11:38 Shock Tree Nuts Allergy Anaphylatic Verified 05/09/18 11:38 Shock PEANUTS Allergy Anaphylatic Uncoded 05/09/18 11:38 Shock Home Medications: Home Medications GuaiFENesin DM* [Robitussin DM*] 10 ml PO Q6H PRN 05/09/18 [History Confirmed ] PMH/Surg Hx/FS Hx/Imm Hx - Surgical History Surgical History: Yes Surgery Procedure, Year, and Place: WISDOM TEETH EXTRACTION - Family History Known Family History: Positive: Cardiac Disease, Other - thyroid problems - Social History Alcohol Use: None Substance Use Type: None Smoking Status (MU): Never Smoked Tobacco - Immunization History Most Recent Influenza Vaccination: 2016 Most Recent Tetanus Shot: UTD Physical Exam - Summary Physical Exam Summary: Vital Signs Reviewed: Yes General: well developed, well nourished female adolescent sitting in the examining table w/o any apparent distress Eyes: Positive: Conjunctiva Clear - PERRLA, EOMI, fundi grossly normal ENT: Positive: Normal ENT inspection, Hearing grossly normal, Pharynx normal, Nasal congestion - edematous and erythematous nasal mucosa, Nasal drainage - yellowish drainage, TMs normal. Negative: Tonsillar swelling, Tonsillar exudate Neck: Positive: Supple, Nontender, No Lymphadenopathy Respiratory: no orthopnea or dyspnea. Able to speak in full sentences, no retractions or accessory muscle use, no tripod position, stridor, or head bobbing. Positive breath sounds bilaterally. Upper posterior lungs w/ mild scattered rhonchi , no wheezing, no crackles or rales. Cardiovascular: Positive: RRR, No Murmur, Pulses Normal, Brisk Capillary Refill Abdomen Description: Positive: Nontender, No Organomegaly, Soft. Negative: CVA Tenderness (R), CVA Tenderness (L) Bowel Sounds: Positive: Present Musculoskeletal Exam: Normal Musculoskeletal: Positive: Strength Intact, ROM Intact, No Edema Neurological Exam: Normal Psychological Exam: Normal Skin Exam: Normal Triage Information Reviewed: Yes Vital Signs: Initial Vital Signs Temp 98.2 F 05/09/18 11:34 Pulse 96 05/09/18 11:34 Resp 18 05/09/18 11:34 BP 116/80 05/09/18 11:34 Pulse Ox 100 05/09/18 11:34 UC Diagnostic Evaluation - Laboratory O2 Sat by Pulse Oximetry: 100 Respiratory Course/Dx - Course Course Of Treatment: Pt with Acute bronchitis on examination. Pt Rx Z-ignacio PO and Albuterol inhaler to alleviate bronchospasm. Pt advised to increase fluid intake and eat well. if not improvement or worsening of symptoms to return to the urgent care or f/u with PCP for further management. pt understood and agreed with plan of care. - Differential Dx/Diagnosis Differential Diagnosis/HQI/PQRI: Asthma, Bronchitis, Influenza, Laryngitis, Lower Resp Infection, Sinusitis Provider Diagnoses: 1- Acute bronchitis. 2- Cough Discharge - Sign-Out/Discharge Documenting (check all that apply): Patient Departure - D/c home All imaging exams completed and their final reports reviewed: No Studies - Discharge Plan Condition: Stable Disposition: HOME Prescriptions: Azithromyxin IGNACIO (NF) [Z-Ignacio (Zithromax) 250 mg tabs #6] 2 tab PO .TODAY, THEN 1 DAILY #6 tab Benzonatate CAP* [Tessalon 100 MG CAP*] 100 mg PO TID #21 cap Patient Education Materials: Acute Bronchitis (ED) Forms: *School Release Referrals: [facility] [Outside] - 3 Days Additional Instructions: 1-Please take full course of antibiotic to avoid resistance. 2-Take Tessalon PO tabs as directed and use the albuterol inhaler to alleviate cough. Increase fluid intake, rest and eat well. 3- If symptoms do not improve or worsen or your develop SOB with fever and severe wheezing please go immediately to the ER further evaluation and treatment. 4- F/u with your PCP in 3 days for further management if not improvement of symptoms. - Billing Disposition and Condition Condition: STABLE Disposition: Home
[2018-05-09 13:46] VITALS: BP 113/77
== END 2018-05-09 13:44 | disposition home or self-care (01) ==
LOC: UCEAST 11:28
DX: J45.909 Unspecified asthma, uncomplicated (principal); R05 Cough; Z91.018 Allergy to other foods; Z91.010 Allergy to peanuts; Z91.013 Allergy to seafood
CPT/HCPCS: 99212; G0463

== ENCOUNTER 2018-12-14 19:44 | Emergency (ER) | payer OTHER ==
--- NOTE | 2018-12-14 22:58 | ED ---
Abdominal Pain/Female - HPI Summary HPI Summary: This patient is a 23 year old female presenting to [facility] with a chief complaint of abdominal pain since 6 months ago. The patient states she had been having intermittent episodes for several hours at a time since onset. The patient previously had constipation but was put on laxatives and it has resolved since. The patient states the pain is across her lower abdomen and radiates to her back. The patient rates her pain 9/10 in severity. She saw a GI specialist who told her to come here to get imaging here. - History of Current Complaint Chief Complaint: Charlene Stated Complaint: "ABDOMINAL PAIN PER PT" Time Seen by Provider: 12/14/18 22:51 Hx Obtained From: Patient Hx Last Menstrual Period: 05/04/18 Pain Intensity: 8 Pain Scale Used: 0-10 Numeric Allergies/Adverse Reactions: Allergies Allergy/AdvReac Type Severity Reaction Status Date / Time sesame seed Allergy Anaphylatic Verified 12/15/18 00:19 Shock shellfish derived Allergy Anaphylatic Verified 12/15/18 00:19 Shock Tree Nuts Allergy Anaphylatic Verified 12/15/18 00:19 Shock PEANUTS Allergy Anaphylatic Uncoded 12/15/18 00:19 Shock PMH/Surg Hx/FS Hx/Imm Hx Endocrine/Hematology History: Denies: Hx Diabetes, Hx Thyroid Disease Cardiovascular History: Denies: Hx Hypertension Respiratory History: Reports: Hx Asthma Denies: Hx Chronic Obstructive Pulmonary Disease (COPD) GI History: Denies: Hx Ulcer - Surgical History Surgery Procedure, Year, and Place: WISDOM TEETH EXTRACTION Infectious Disease History: No Infectious Disease History: Denies: Hx Clostridium Difficile, Hx Hepatitis, Hx Human Immunodeficiency Virus (HIV), Hx of Known/Suspected MRSA, History Other Infectious Disease, Traveled Outside the [place] in Last 30 Days - Family History Known Family History: Positive: Cardiac Disease, Other - thyroid problems Family History: hypothyrodism - Social History Alcohol Use: None Substance Use Type: Reports: None Hx Tobacco Use: No Smoking Status (MU): Never Smoked Tobacco Review of Systems Positive: Abdominal Pain, Other - Constipation, resolved Positive: Other - Back pain All Other Systems Reviewed And Are Negative: Yes Physical Exam - Summary Physical Exam Summary: VITAL SIGNS: Reviewed. GENERAL: Patient is a well-developed and nourished FEMALE who is lying comfortable in the stretcher. Patient is not in any acute respiratory distress. HEAD AND FACE: No signs of trauma. No ecchymosis, hematomas or skull depressions. No sinus tenderness. EYES: PERRLA, EOMI x 2, No injected conjunctiva, no nystagmus. EARS: Hearing grossly intact. Ear canals and tympanic membranes are within normal limits. MOUTH: Oropharynx within normal limits. NECK: Supple, trachea is midline, no adenopathy, no JVD, no carotid bruit, no c- spine tenderness, neck with full ROM. CHEST: Symmetric, no tenderness at palpation LUNGS: Clear to auscultation bilaterally. No wheezing or crackles. CVS: Regular rate and rhythm, S1 and S2 present, no murmurs or gallops appreciated. ABDOMEN: Soft, bilateral lower quadrant tenderness left more than right. No signs of distention. No rebound no guarding, and no masses palpated. Bowel sounds are normal. EXTREMITIES: FROM in all major joints, no edema, no cyanosis or clubbing. NEURO: Alert and oriented x 3. No acute neurological deficits. Speech is normal and follows commands. SKIN: Dry and warm Triage Information Reviewed: Yes Vital Signs On Initial Exam: Initial Vitals Temp Pulse Resp BP Pulse Ox 98 F 89 18 136/94 99 12/14/18 19:48 12/14/18 19:48 12/14/18 19:48 12/14/18 19:48 12/14/18 19:48 Vital Signs Reviewed: Yes Diagnostics - Vital Signs Vital Signs Temp Pulse Resp BP Pulse Ox 12/14/18 22:15 97.9 F 84 16 109/75 100 12/14/18 19:48 98 F 89 18 136/94 99 - Laboratory Result Diagrams: 12/14/18 23:38 12/14/18 23:38 Lab Statement: Any lab studies that have been ordered have been reviewed, and results considered in the medical decision making process. - CT Abd/Pel CT CT Interpretation Completed By: Radiologist Summary of CT Findings: No acute findings. ED Provider has reviewed this report. Abdominal Pain Fem Course/Dx - Course Course Of Treatment: This patient is a 23 year old female presenting to [facility] with a chief complaint of abdominal pain since 6 months ago. The patient states she had been having intermittent episodes for several hours at a time since onset.Abdomen Pelvis CT was unremarkable for gastrointestinal problems. A plan for discharge was discussed with the patient and she was agreeable with this plan. - Diagnoses Provider Diagnoses: Abdominal pain Discharge - Sign-Out/Discharge Documenting (check all that apply): Patient Departure - Discharge Patient Received Moderate/Deep Sedation with Procedure: No - Discharge Plan Condition: Stable Disposition: HOME Prescriptions: Dicyclomine CAP* [Bentyl CAP*] 10 mg PO TID PRN #90 cap PRN Reason: Pain Patient Education Materials: Abdominal Pain (ED) Referrals: [facility] [Provider Group] Additional Instructions: Follow up with Gastroenterology. Return to ED with any new or worsening symptoms. - Attestation Statements Document Initiated by Scribe: Yes Documenting Scribe: Aaron Ordoñez Provider For Whom Scribe is Documenting (Include Credential): Karon Pierre MD Scribe Attestation: IAaron, scribed for Karon Pierre MD on 12/15/18 at 0251. Status of Scribe Document: Ready
[2018-12-14] MEDS ORDERED: NS 0.9% 1000 ML** 1,000 ML IV ONE (23:05)
[2018-12-14] MEDS ORDERED: Ketorolac INJ* 30 MG/ML 1 ML VIAL IV PUSH ONE (23:05)
[2018-12-14 23:46] LABS: ABS Basophils 0.1 10^3/ul (0-0.2); ABS Eosinophils 1.1 10^3/ul (0-0.6); ABS Lymphocytes 2.4 10^3/ul (1.0-4.8); ABS Monocytes 0.5 10^3/ul (0-0.8); ABS Neutrophils 2.5 10^3/ul (1.5-7.7); Eosinophil % 16.4 %; Hematocrit 45 % (35-47); Hemoglobin 15.3 g/dL (12.0-16.0); Lymphocyte % 37.2 %; Mean Corpuscular HGB Conc 34 g/dL (31-36); Mean Corpuscular Hemoglobin 29 pg (27-31); Mean Corpuscular Volume 85 fL (80-97); Mean Platelet Volume 8.4 fL (7.4-10.4); Platelet Count 278 10^3/uL (150-450); Red Blood Count 5.34 10^6 /uL (3.70-4.87); Red Cell Distribution Width 13 % (10-15); White Blood Count 6.4 10^3/uL (3.5-10.8)
[2018-12-15 00:08] LABS: HCG Pregnancy < 0.60 mIU/mL
[2018-12-15 00:37] LABS: Anion Gap 10 mmol/L (2-11); Blood Urea Nitrogen 17 mg/dL (6-24); CO2 Carbon Dioxide 23 mmol/L (22-32); Calcium 9.3 mg/dL (8.6-10.3); Chloride 103 mmol/L (101-111); EGFR Non-African American 89.3 (>60); Glucose 92 mg/dL (70-100); Potassium 3.7 mmol/L (3.5-5.0); Sodium 136 mmol/L (135-145); Total Protein 7.8 g/dL (6.4-8.9)
[2018-12-15 00:38] LABS: ALT 12 U/L (7-52); AST 18 U/L (13-39); Albumin 4.3 g/dL (3.2-5.2); Albumin/Globulin Ratio 1.2 (1-3); Alkaline Phosphatase 62 U/L (34-104); Amylase 63 U/L (29-103); Globulin 3.5 g/dL (2-4)
[2018-12-15] MEDS ORDERED: Iohexol 300* (CONTRAST) 10 ML SDV IV ONE (00:59)
[2018-12-15 01:29] LABS: Urine Appearance Clear; Urine Bacteria 1+ (Absent); Urine Bilirubin Negative (Negative); Urine Blood 2+ (Negative); Urine Color Colorless; Urine Glucose Negative (Negative); Urine Ketones Trace (Negative); Urine Nitrite Negative (Negative); Urine Protein Negative (Negative); Urine Red Blood Cell Absent (Absent); Urine Specific Gravity 1.001 (1.010-1.030); Urine Urobilinogen Negative (Negative); Urine White Blood Cell Absent (Absent)
[2018-12-15 03:11] VITALS: BP 108/53
== END 2018-12-15 03:10 | disposition home or self-care (01) ==
LOC: ED 19:44
DX: R10.9 Unspecified abdominal pain (principal); K59.00 Constipation, unspecified; M54.9 Dorsalgia, unspecified
CPT/HCPCS: 36415; 74177; 80053; 81003; 81015; 82150; 83690; 84702; 85025; 85730; 86140; 87086; 96361; 96374; 99283; J1885; Q9967

== ENCOUNTER 2019-01-30 15:31 | Emergency (ER) | payer OTHER ==
--- OUTSIDE RECORDS SUMMARY | 2019-01-30 15:36 | XMS REPORT | Continuity of Care Document ---
:1995 External Reference #:[id number] Author Name Heike Marquez Care Team Providers Name Role Phone Patient's Choice Primary Care Physician Unavailable Payers Date Identification Numbers Payment Provider Subscriber Effective: 2018 Policy Number: [id number] [employer] Insurance Haleigh Sevilla Group Number: [id number] [address] PayID: [id number] [place] [address] Family History Date Family Member(s) Observation Comments Mother colon polyps Benign Social History Type Date Description Comments Sex Unknown ETOH Use Denies alcohol use Tobacco Use Start: Unknown Patient has never smoked Recreational Drug Use Denies Drug Use Smoking Status Reviewed: 01/07/19 Patient has never smoked Allergies, Adverse Reactions, Alerts Active Allergies Reaction Severity Comments Date Tree Nuts 01/07/2019 Shellfish-Derived Products Tongue swelling, anaphylaxis 01/07/2019 Sesame Seed Extract 01/07/2019 Medications Active Medications SIG Qnty Indications Ordering Date Provider Aviane 1 by mouth every day Unknown 0.1-20mg-mcg Tablets Epipen 2-Juan Antonio use as directed for Unknown food allergies 0.3mg/0.3ML Solution Auto-Inject Xopenex 1 vial via nebulizer Unknown 0.63mg/3ML four times a day as Nebulizer needed, do not combine with ventolin Miralax take 1-3 cups daily Unknown [id number] Packet as needed for constipation Colace 2 tabs daily as Unknown 100mg Capsules needed for constipation Vital Signs Date Vital Result Comment 01/07/2019 4:29pm Height 64 inches 5'4" Weight 132.00 lb Heart Rate 86 /min BP Systolic 106 mmHg BP Diastolic 72 mmHg O2 % BldC Oximetry 99 % BMI (Body Mass Index) 22.7 kg/m2 Plan of Treatment Future Appointment(s):01/23/2019 4:00 pm - Stephanie Aponte NP at [facility] G[facility]ology
--- OUTSIDE RECORDS SUMMARY | 2019-01-30 15:36 | XMS REPORT | Continuity of Care Document ---
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 Services Director Unavailable Payers Date Identification Numbers Payment Provider Subscriber Policy Number: [id number] [employer] Lisa Gordon PayID: [id number] [address] [place] [address] Family History Date Family Member(s) Observation Comments Father A&W Mother Hypercholesterolemia Mother Migraine Siblings 1 First Sister Anxiety Paternal Grandmother due to Stroke () Maternal Grandfather Cancer Social History Type Date Description Comments Sex Unknown Education current: college Marital Status Single Occupation Student Tobacco Use Start: Unknown Never Smoked Cigarettes ETOH Use Denies alcohol use Recreational Drug Use Denies Drug Use Tobacco Use Start: Unknown Patient has never smoked Smoking Status Reviewed: 01/17/19 Patient has never smoked Exercise Type/Frequency Occasionally Seat Belt/Car Seat Always uses seat belt Currently Active Patient is currently not sexually active STD's No STD History Allergies, Adverse Reactions, Alerts Description No Known Drug Allergies Medications Active Medications SIG Qnty Indications Ordering Provider Date Diflucan take 1 by mouth 2tabs Francesco Decker CNM 01/17/2019 150mg for yeast. repeat Tablets x 1 in 72 hours as needed Aviane 1 by mouth every 168tabs Sierra Aguilar, 11/15/2018 0.1-20mg-mcg day. Skip the MD Tablets placebo pills and continue directly to the next pack. Xopenex HFA Unknown Epipen 2-Juan Antonio Unknown Benadryl Allergy Unknown Colace one capsule by Unknown 100mg Capsules mouth, up to three times a day as needed Miralax Unknown Powder Magnesium Citrate Unknown 1.745GM/30ML Solution Fiber-Caps Unknown 625mg Tablets History Medications Magnesium Citrate Francesco Decker CNM 01/17/2019 - 01/17/2019 Powder Levonorgestrel/Ethi take 1 tab by 182tabs Sierra Aguilar, 11/07/2018 - nyl Estradiol mouth daily as 11/14/2018 instructed. skip 0.15-0.03&0.01mg the placebo pills Tablets and continue directly to the next pill pack. Alyacen 1/35 1 by mouth every 84tabs Luna Hendricks, 05/22/2018 - day/ start first 11/07/2018 1-35mg-mcg Tablets day of menses. Medications Administered in Office Medication SIG Qnty Indications Ordering Provider Date PT SCRN Tbco Id as Non User Francesco Decker CNM 01/17/2019 Injection PT SCRN Tbco Id as Non User Sierra Aguilar MD 11/07/2018 Injection PT SCRN Tbco Id as Non User Luna Hendricks MD 05/22/2018 Injection Vital Signs Date Vital Result Comment 01/22/2019 7:57am BP Systolic 104 mmHg BP Diastolic 66 mmHg Height 65 inches 5'5" Weight 130.00 lb BMI (Body Mass Index) 21.6 kg/m2 Last Menstrual Period 2910789 0 Parity 0 01/17/2019 7:58am BP Systolic 106 mmHg BP Diastolic 66 mmHg Height 65 inches 5'5" Weight 132.00 lb BMI (Body Mass Index) 22.0 kg/m2 Last Menstrual Period 8911560 0 Parity 0 11/07/2018 9:19am BP Systolic 122 mmHg BP Diastolic 70 mmHg Height 65 inches 5'5" Weight 136.00 lb BMI (Body Mass Index) 22.6 kg/m2 Last Menstrual Period [id number] 0 Parity 0 05/22/2018 11:34am BP Systolic 120 mmHg BP Diastolic 66 mmHg Height 65 inches 5'5" Weight 134.00 lb BMI (Body Mass Index) 22.3 kg/m2 Last Menstrual Period [id number] 0 Parity 0 Results Test Date Facility Test Result H/L Range Note Laboratory test 05/22/2018 [facility] Cytology SEE RESULT 1 finding [place] [address] BELOW [phone] 1 SEE RESULT BELOW Name: SCARLETT GERONIMO : [address]: Luna Hendricks MD Acct: [id number] Unit: [id number] AGE: 23 Location: [facility] Re05/22/18 SEX: F Status: REG REF SPEC: [id number] JALYN: 05/22/[address] [facility] [address]: Luna Hendricks MD REQ: [id number] RECD: 05/22/18 STATUS: SOUT _ ORDERED: TP IMAGE ANALYS COMMENTS: [id number] Negative for Intraepithelial lesion or Malignancy A. Ectocervical/Endocervical Specimen Adequacy: Satisfactory of evaluation Transformation zone component identified Patient Information: HPV: Thin Layer Pap Test w/reflex to high risk HPV RNA testing when ASCUS Actual Specimen Date: 05/22/18 Last Menstrual Date: 04/27/18 Spec Date if unknown: never Signed by and Reported on: VIRGINIA Painter(ASCP) 1233 This Pap test was evaluated with the assistance of the Celltrix Test Imaging System. Due to cytologic findings at the wellness educator microscope, comprehensive manual rescreening by a Station Manager may be required. The Pap Smear is a screening test designed to aid in the detection of premalignant and malignant conditions of the uterine cervix. It is not a diagnostic procedure and should not be used as the sole means of detecting cervical cancer. Both false- positive and false- negative reports do occur. Depending on your risk status, a Pap smear should be obtained and evaluated every 1-3 years. END OF REPORT DEPARTMENT OF PATHOLOGY, [address] [place] [address] Jethro Umaña M.D. 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
--- OUTSIDE RECORDS SUMMARY | 2019-01-30 15:36 | XMS REPORT | Continuity of Care Document ---
:1995 External Reference #:[id number] Author Name Perla Yu Care Team Providers Name Role Phone Patient's Choice Primary Care Physician Unavailable Payers Date Identification Numbers Payment Provider Subscriber Effective: 2018 Policy Number: [id number] [employer] Insurance Haleigh Sevilla Group Number: [id number] [address] PayID: [id number] [place] [address] Family History Date Family Member(s) Observation Comments Mother colon polyps Benign Social History Type Date Description Comments Sex Unknown ETOH Use Denies alcohol use Tobacco Use Start: Unknown Patient has never smoked Recreational Drug Use Denies Drug Use Smoking Status Reviewed: 01/23/19 Patient has never smoked Allergies, Adverse Reactions, [...] constipation Vital Signs Date Vital Result Comment 01/23/2019 3:55pm Height 64 inches 5'4" Weight 130.00 lb Heart Rate 85 /min BP Systolic 101 mmHg BP Diastolic 74 mmHg O2 % BldC Oximetry 99 % BMI (Body Mass Index) 22.3 kg/m2 01/07/2019 4:29pm Height 64 inches 5'4" Weight 132.00 lb Heart Rate 86 /min BP Systolic 106 mmHg BP Diastolic 72 mmHg O2 % BldC Oximetry 99 % BMI (Body Mass Index) 22.7 kg/m2 Encounters Type Date Location Provider Dx Diagnosis Office Visit 01/07/2019 [facility] Gastroenterology Home Galindo K59.00 Constipation, 3:15p MD Kevan unspecified R10.30 Lower abdominal pain, unspecified D72.1 Eosinophilia J45.909 Unspecified asthma, uncomplicated Plan of Treatment 01/07/2019 - Home Mathur MDK59.00 Constipation, unspecifiedFollow up:2-3 weeks with XAfvpdF83.30 Lower abdominal pain, unspecifiedFollow up:2-3 weeks with NEoieeJ49.1 EosinophiliaFollow up:2-3 weeks with IYeakeB11.909 Unspecified asthma, uncomplicatedFollow up:2-3 weeks with RAyers
--- OUTSIDE RECORDS SUMMARY | 2019-01-30 15:36 | XMS REPORT | Continuity of Care Document ---
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 Alyacen 135 1 by mouth every 84tabs Luna Hendricks, [...] Injection Vital Signs Date Vital Result Comment 01/17/2019 7:58am BP Systolic 106 mmHg BP Diastolic 66 mmHg Height 65 inches 5'5" Weight 132.00 lb BMI (Body Mass Index) 22.0 kg/m2 Last Menstrual Period [id number] 0 Parity 0 11/07/2018 9:19am BP Systolic 122 mmHg BP Diastolic 70 mmHg Height 65 inches 5'5" Weight 136.00 lb BMI (Body Mass Index) 22.6 kg/m2 Last Menstrual Period 9258386 0 Parity 0 05/22/2018 11:34am BP Systolic 120 mmHg BP Diastolic 66 mmHg Height 65 inches 5'5" Weight 134.00 lb BMI (Body Mass Index) 22.3 kg/m2 Last Menstrual Period 7366756 0 Parity 0 Results Test Date Facility Test Result H/L Range Note Laboratory test 05/22/2018 [facility] Cytology SEE RESULT 1 [place] [address] BELOW [phone] 1 SEE RESULT BELOW Name: SCARLETT GERONIMO : [address]: Luna Hendricks MD Acct: [id number] Unit: [id number] AGE: 23 Location: [facility] Re05/22/18 SEX: F Status: REG REF SPEC: [id number] JALYN: 05/22/18 [facility] DR: Luna Hendricks MD REQ: [id number] RECD: 05/22/18 STATUS: SOUT _ ORDERED: TP IMAGE ANALYS COMMENTS: [id number] Negative for Intraepithelial lesion or Malignancy A. Ectocervical/Endocervical Specimen Adequacy: Satisfactory of evaluation Transformation zone component identified Patient Information: HPV: Thin Layer Pap Test w/reflex to high risk HPV RNA testing when ASCUS Actual Specimen Date: 05/22/18 Last Menstrual Date: 04/27/18 Spec Date if unknown: never Signed by and Reported on: VIRGINIA Painter(ASCP) 1235 This Pap test was evaluated with the assistance of the TransbiomedPrep Test Imaging System. Due to cytologic findings at the glass frame fitter microscope, comprehensive manual rescreening by a Acid Changer may be required. The Pap Smear is [...] years. END OF REPORT DEPARTMENT OF PATHOLOGY, [address] [place] [address] Jethro Umaña M.D. 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 RTO within 1 week for re-evaluation
[2019-01-30 15:39] VITALS: BP 111/78
--- NOTE | 2019-01-30 17:31 | UC ---
Ear Complaint HPI - HPI Summary HPI Summary: 2 DAYS OF LEFT EAR PAIN AND MUTED HEARING. NO FEVER OR URI SX. IS NOT PRONE TO EAR INFECTIONS. HAS NOT BEEN SWIMMING. DOES USE QTIPS ON OCCASION. - History of Current Complaint Chief Complaint: UCEar Stated Complaint: EAR ACHE Time Seen by Provider: 01/30/19 16:10 Hx Obtained From: Patient, Family/Pe Teacher - MOM Hx Last Menstrual Period: one week ago Onset/Duration: Gradual Onset, Lasting Days, Still Present Severity Initially: Mild Severity Currently: Mild Pain Intensity: 2 Pain Scale Used: 0-10 Numeric Aggravating Factors: Nothing Alleviating Factors: Nothing Associated Signs/Symptoms: Positive: Hearing Loss. Negative: Discharge, Swelling @, URI Symptoms - Allergies/Home Medications Allergies/Adverse Reactions: Allergies Allergy/AdvReac Type Severity Reaction Status Date / Time sesame seed Allergy Anaphylatic Verified 01/30/19 15:40 Shock shellfish derived Allergy Anaphylatic Verified 01/30/19 15:40 Shock Tree Nuts Allergy Anaphylatic Verified 01/30/19 15:40 Shock PEANUTS Allergy Anaphylatic Uncoded 01/30/19 15:40 Shock PMH/Surg Hx/FS Hx/Imm Hx Respiratory History: Asthma - Surgical History Surgical History: Yes Surgery Procedure, Year, and Place: WISDOM TEETH EXTRACTION - Family History Known Family History: Positive: Cardiac Disease, Other - thyroid problems Family History: hypothyrodism - Social History Alcohol Use: None Substance Use Type: None Smoking Status (MU): Never Smoked Tobacco - Immunization History Most Recent Influenza Vaccination: 2016 Most Recent Tetanus Shot: UTD Vaccination Up to Date: Yes Review of Systems All Other Systems Reviewed And Are Negative: Yes Constitutional: Positive: Negative ENT: Positive: Ear Ache Respiratory: Positive: Negative Cardiovascular: Positive: Negative Gastrointestinal: Positive: Negative Physical Exam Triage Information Reviewed: Yes Appearance: Well-Appearing, No Pain Distress, Well-Nourished Vital Signs: Initial Vital Signs Temp 97.8 F 01/30/19 15:38 Pulse 85 01/30/19 15:38 Resp 12 01/30/19 15:38 BP 111/78 01/30/19 15:38 Pulse Ox 100 01/30/19 15:38 Vital Signs Reviewed: Yes Eyes: Positive: Conjunctiva Clear ENT: Positive: Hearing grossly normal, TMs normal, Other - NO TMJ TENDERNESS. RIGHT EAC UNREMARKABLE. SMALL AMOUNT OF NONOBSTRUCTIVE CERUMEN LEFT EAC Neck: Positive: Supple, Nontender Respiratory Exam: Normal Cardiovascular Exam: Normal Abdomen Description: Positive: Soft Musculoskeletal: Positive: No Edema Neurological: Positive: Alert Psychological: Positive: Normal Response To Family, Age Appropriate Behavior Skin: Negative: Rashes Ear Complaint Course/Dx - Course Course Of Treatment: UNCLEAR ETIOLOGY OF PATIENT'S DISCOMFORT. HER EXAM IS UNREMARKABLE. I'VE ADVISED SHE CALL ENT TOMORROW TO SCHEDULE A FOLLOW-UP APPOINTMENT FOR FURTHER EVALUATION. - Differential Dx/Diagnosis Provider Diagnosis: Left ear pain Discharge - Sign-Out/Discharge Documenting (check all that apply): Patient Departure All imaging exams completed and their final reports reviewed: No Studies - Discharge Plan Condition: Stable Disposition: HOME Patient Education Materials: Earache (ED) Referrals: No Primary Care Phys,NOPCP [Primary Care Provider] - Additional Instructions: NO EAR INFECTION OR OBSTRUCTIVE EARWAX SEEN ON EXAM TODAY. UNCLEAR ETIOLOGY OF YOUR SYMPTOMS. CALL ENT TODAY TO SCHEDULE AN APPOINTMENT ELGIN. EAR PAIN, NON-SPECIFIC There are many causes of ear pain in adults. Pain that's felt in the ear can actually be coming from somewhere nearby. This is called "referred pain." Problems in the teeth, throat, or jaw joint (TMJ) often cause ear pain. Sometimes the physical exam or medical history suggests a treatable cause. If not, we may wait for the pain to go away. New symptoms may offer a clue to the cause of the pain. Report any changes to your care provider. These are some conditions that can cause ear pain, but may not be obvious from physical examination: Eardrum injury Pressure changes (barotrauma) due to swimming or shock waves Mild trauma such as Q-tip injury or finger-picking the outer ear Mild outer ear infection (swimmer's ear) Low-grade or chronic middle ear infection Mastoiditis (infection in the bone behind the ear) TMJ syndrome or arthritis of the jaw Pressure from hard earwax Tooth infection Infected tonsil Sinus infection Nerve disease such as Bhatti's Palsy Follow your care provider's treatment recommendations. Let the ear rest. Don't insert cotton swabs, dig at the ear with your finger, or force your ears to "pop." If you're not improving after a few days, or if new symptoms arise, see the doctor. Watch for: Decreased hearing Spreading pain or headache Drainage or bleeding from the ear Fever Weakness of the face muscles Other new symptoms [facility] [place] ANGELINA NESBITT AND [place] [address] [facility] [phone] [facility] [place] [address] ALF[facility] [place] [phone] [facility] [place] OFFICE HOURS ON TUESDAYS) DR. FROILAN EWING Address: [address] [place] [address] (Tuesdays) Phone [place]: Phone Ethel: - Billing Disposition and Condition Condition: STABLE Disposition: Home
== END 2019-01-30 16:15 | disposition home or self-care (01) ==
LOC: UCEAST 15:31
DX: H92.02 Otalgia, left ear (principal); J45.909 Unspecified asthma, uncomplicated
CPT/HCPCS: 99211; G0463

== ENCOUNTER 2019-03-27 09:38 | Emergency (ER) | payer OTHER ==
--- OUTSIDE RECORDS SUMMARY | 2019-03-27 09:41 | XMS REPORT | Continuity of Care Document ---
:1995 External Reference #:[id number] Author Name Delia Dumont Care Team Providers Name Role Phone Patient's Choice Care Team Information Customer Experience Manager Unavailable Problems Active Problems Provider Date Constipation - functional Stephanie Aponte NP Onset: 01/23/2019 Asthma without status asthmaticus Stephanie Aponet NP Onset: 01/23/2019 Social History Type Date Description Comments Sex [...] as Unknown 100mg Capsules needed for constipation Immunizations Description No Information Available Vital Signs Date Vital Result Comment 01/23/2019 [...] % BMI (Body Mass Index) 22.7 kg/m2 Results Description No Information Available Procedures Description No Information Available Medical Devices Description No Information Available Encounters Type Date Location Provider Dx Diagnosis Office Visit 01/23/2019 [facility] G[facility]enterology Stephanie Aponte, K59.00 Constipation, 4:00p EDUCATIONAL ASSISTANT unspecified R10.30 Lower abdominal pain, unspecified J45.909 Unspecified asthma, uncomplicated Office 01/07/2019 [facility] Home [place] K59.00 Constipation, Visit 3:15p MD Kevan unspecified R10.30 Lower abdominal pain, unspecified D72.1 Eosinophilia J45.909 Unspecified asthma, uncomplicated Assessments Date Code Description Provider 01/23/2019 K59.00 Constipation, unspecified Stephanie Aponte, EDUCATIONAL ASSISTANT 01/23/2019 R10.30 Lower abdominal pain, unspecified Stephanie Aponte, EDUCATIONAL ASSISTANT 01/23/2019 J45.909 Unspecified asthma, uncomplicated Stephanie Aponte, EDUCATIONAL ASSISTANT 01/07/2019 K59.00 Constipation, unspecified Home Mathur MD 01/07/2019 R10.30 Lower abdominal pain, unspecified Home Mathur MD 01/07/2019 D72.1 Eosinophilia Home Mathur MD 01/07/2019 J45.909 Unspecified asthma, uncomplicated Home Mathur MD Plan of Treatment 01/23/2019 - Stephanie Aponte, NPK59.00 Constipation, unspecifiedComments:Please see us as needed.Thank you for using [facility].R10.30 Lower abdominal pain, unspecifiedComments:Please see us as needed.Thank you for using [facility].J45.909 Unspecified asthma, uncomplicatedComments:Please see us as needed.Thank you for using [facility]. Functional Status Description No Information Available Mental Status Description No Information Available Referrals Description No Information Available
[2019-03-27 09:46] VITALS: BP 115/79
--- NOTE | 2019-03-27 10:24 | UC ---
Complaint Female HPI - HPI Summary HPI Summary: 23 year female with no PMH h/o UTI 2 years ago presents iwth urinary frequency, urgency, hematuria, burning with completion. Denies fever, chills, N/V GI symptoms, ON OCP, no chance of . + lower abdominal pain with radiation to lower right back. NO flank pain. no other symptoms, denies fever, chills. - History Of Current Complaint Chief Complaint: UCGU Stated Complaint: URINARY COMPLAINT Time Seen by Provider: 03/27/19 10:23 Hx Obtained From: Patient Hx Last Menstrual Period: 03/20/19 ?: No Onset/Duration: Sudden Onset, Lasting Days - 2-3 days Timing: Constant Severity Currently: None Pain Intensity: 0 Pain Scale Used: 0-10 Numeric Character: Sharp, Burning, Cramping Aggravating Factor(s): Urination Associated Signs And Symptoms: Positive: Back Pain. Negative: Fever, Vaginal Bleeding/Discharge, Vaginal Discharge, Nausea, Vomiting(# Of Episodes =), Genital Swelling, Genital Blisters - Allergies/Home Medications Allergies/Adverse Reactions: Allergies Allergy/AdvReac Type Severity Reaction Status Date / Time sesame seed Allergy Anaphylatic Verified 03/27/19 09:41 Shock shellfish derived Allergy Anaphylatic Verified 03/27/19 09:41 Shock Tree Nuts Allergy Anaphylatic Verified 03/27/19 09:41 Shock PEANUTS Allergy Anaphylatic Uncoded 03/27/19 09:41 Shock Home Medications: Home Medications Levonorgestrel-Ethin Estradiol [Levonorgestrel and Ethiny 90-20 Mcg] 1 tab PO DAILY 03/27/19 [History Confirmed 03/27/19] PMH/Surg Hx/FS Hx/Imm Hx Previously Healthy: Yes - Surgical History Surgical History: Yes Surgery Procedure, Year, and Place: WISDOM TEETH EXTRACTION - Family History Known Family History: Positive: Cardiac Disease, Other - thyroid problems, Non- Contributory Family History: hypothyrodism - Social History Alcohol Use: None Substance Use Type: None Smoking Status (MU): Never Smoked Tobacco - Immunization History Most Recent Influenza Vaccination: 2016 Most Recent Tetanus Shot: UTD Vaccination Up to Date: Yes Review of Systems All Other Systems Reviewed And Are Negative: Yes Constitutional: Positive: Negative. Negative: Fever, Chills, Fatigue Gastrointestinal: Positive: Abdominal Pain. Negative: Vomiting, Diarrhea, Nausea Genitourinary: Positive: Dysuria, Hematuria, Frequency, Urgency. Negative: Vaginal/Penile Burning, Vaginal/Penile Itching, Vaginal/Penile Discharge, Vaginal/Penile Pain, Vaginal/Penile Tenderness, Ulceration/Lesion Motor: Positive: Negative Is Patient Immunocompromised?: No Physical Exam Triage Information Reviewed: Yes Appearance: Well-Appearing, No Pain Distress, Well-Nourished Vital Signs: Initial Vital Signs Temp 98 F 03/27/19 09:42 Pulse 89 03/27/19 09:42 Resp 16 03/27/19 09:42 BP 115/79 03/27/19 09:42 Pulse Ox 100 03/27/19 09:42 Vital Signs Reviewed: Yes Eyes: Positive: Conjunctiva Clear ENT: Positive: Hearing grossly normal Abdomen Description: Positive: No Organomegaly, Soft, Other: - minimal suprapubic tenderness. Negative: CVA Tenderness (R), CVA Tenderness (L), Distended, Peritoneal Signs, Splenomegaly Neurological Exam: Normal Psychological Exam: Normal Skin Exam: Normal Complaint Female Dx - Course Course Of Treatment: UTI- - Increase fluid intake - Antibiotics as directed - Tylenol/ Motrin as needed for pain, spasm - GO to ER with fever > 101, flank pain, increased abdominal pain, or no urination x 6 hours - Follow up with PCP or school doctor if symptoms not improved in 2-3 days - Differential Dx/Diagnosis Differential Diagnosis/HQI/PQRI: Urinary Tract Infection Provider Diagnosis: UTI (urinary tract infection), uncomplicated Discharge ED - Sign-Out/Discharge Documenting (check all that apply): Patient Departure All imaging exams completed and their final reports reviewed: No Studies - Discharge Plan Condition: Good Disposition: HOME Prescriptions: Sulfamethox/Trimethoprim DS* [Bactrim DS 800/160 TAB*] 1 tab PO BID #6 tab Patient Education Materials: Urinary Tract Infection in Women (ED) Forms: *School Release Referrals: No Primary Care Phys,NOPCP [Primary Care Provider] - Additional Instructions: UTI- - Increase fluid intake - Antibiotics as directed - Tylenol/ Motrin as needed for pain, spasm - GO to ER with fever > 101, flank pain, increased abdominal pain, or no urination x 6 hours - Follow up with PCP or school doctor if symptoms not improved in 2-3 days - Billing Disposition and Condition Condition: GOOD Disposition: Home
== END 2019-03-27 10:45 | disposition home or self-care (01) ==
LOC: UCEAST 09:38
DX: N39.0 Urinary tract infection, site not specified (principal); Z87.440 Personal history of urinary (tract) infections
CPT/HCPCS: 81003; 87077; 87086; 99212; G0463

== ENCOUNTER 2019-08-28 16:37 | Emergency (ER) | payer BC, OTHER ==
--- OUTSIDE RECORDS SUMMARY | 2019-08-28 16:45 | XMS REPORT | Continuity of Care Document ---
:1995 External Reference #:[id number] Author Name Makayla Farias M.D. Address [address] [facility] [place] [address] Care Team Providers Name Role Phone Makayla Farias M.D. - Family Medicine Care Team Information Patient Portal Concierge Unavailable Problems Active Problems Provider Date Acne Makayla Farias M.D. Onset: 07/22/2019 Dysmenorrhea Makayla Farias M.D. Onset: 07/22/2019 Social History Type Date Description Comments Sex Unknown Recreational Drug Use Denies Drug Use Tobacco Use Start: Unknown Never Smoked Cigarettes Smoking Status Reviewed: 07/22/19 Never Smoked Cigarettes Exercise Type/Frequency Exercises sporadically walks to class and between class Allergies, Adverse Reactions, Alerts Active Allergies Reaction Severity Comments Date Peanuts 04/01/2019 Tree Nuts 04/01/2019 Shellfish-derived Products 04/01/2019 Sesame 04/01/2019 Medications Active Medications SIG Qnty Indications Ordering Date Provider Retin-A apply at bedtime 45gm L70.9 Makayla Farias, 07/22/2019 0.05% Cream as directed M.D. Norethindrone 1 by mouth every 84tabs N94.6 Makayla Farias, 07/22/2019 0.35mg day M.D. Tablets Fiber Complete once every day Unknown Tablets Colace 1 by mouth once Unknown 100mg Capsules daily Xopenex Concentrate prn Unknown 1.25mg/0.5ML Nebulizer Epipen 2-Juan Antonio use as directed Unknown 0.3mg/0.3ML Solution Auto-Inject Qvar Redihaler inhale 2 puffs by Unknown 80mcg/Act mouth twice a day Aerosol as directed History Medications Danielle 1 by mouth every 28tabs N94.6 Makayla Farias, 07/22/2019 - 0.35mg Tablets day M.D. 07/22/2019 Jocarolinaa Take one by mouth 273tabs L70.8 Amy Donohue 05/02/2019 - 0.15-0.03mg daily as directed GRIFFIN Mascorro 07/22/2019 Tablets Doxycycline Hyclate 1 po bid 60tabs L70.8 Evelyn 04/01/2019 - Hildillonorf, Afnp-C 05/02/2019 50mg Tablets Immunizations Description No Information Available Vital Signs Date Vital Result Comment 07/22/2019 6:56pm BP Systolic 100 mmHg BP Diastolic 70 mmHg Heart Rate 72 /min Body Temperature 97.9 F Respiratory Rate 18 /min Height 64.5 inches 5'4.50" Weight 149.00 lb BMI (Body Mass Index) 25.2 kg/m2 05/02/2019 1:11pm BP Systolic 108 mmHg BP Diastolic 68 mmHg Heart Rate 80 /min Body Temperature 98.4 F Respiratory Rate 16 /min Height 64.5 inches 5'4.50" Weight 135.00 lb BMI (Body Mass Index) 22.8 kg/m2 Results Description No Information Available Procedures Description No Information Available Medical Devices Description No Information Available Encounters Type Date Location Provider Dx Diagnosis Office Visit 05/02/2019 1:30p Main Office Amy Mascorro NP L70.8 Other acne R51 Headache L30.9 Dermatitis, unspecified Office Visit 04/01/2019 2:00p Main Office Evelyn Brink, N39.0 Urinary tract Afnp-C infection, site not specified L70.8 Other acne Assessments Date Code Description Provider 07/22/2019 R00.2 Palpitations Makayla Farias M.D. 07/22/2019 N94.6 Dysmenorrhea, unspecified Makayla Farias M.D. 07/22/2019 G43.009 Migraine without aura, not intractable, Makayla Farias M.D. without status migrainosus 07/22/2019 Z82.49 Family history of ischemic heart disease Makayla Farias M.D. and other diseases of the circulatory system 07/22/2019 L70.9 Acne, unspecified Makayla Farias M.D. 05/02/2019 L70.8 Other acne Amy Mascorro NP 05/02/2019 R51 Headache Amy Mascorro, GRIFFIN 05/02/2019 L30.9 Dermatitis, unspecified Amy Mascorro, GRIFFIN 04/01/2019 N39.0 Urinary tract infection, site not Tung Garza specified 04/01/2019 L70.8 Other acne Tung Garza Plan of Treatment 07/22/2019 - Makayla Farias M.D.R00.2 PalpitationsNew Labs:CBC Electronic ([facility] New), Ordered: 07/22/19Lipid Panel-[facility], Ordered: Magnesium ([facility]), Ordered: 07/22/19TSH ([facility]), Ordered: 07/22/19Comp Metabolic-[facility], Ordered: 07/22/19Comments:discussed limiting alcohol, smoking, stress, caffeine and to keep hydrated; discussed warning signs and symptoms and to go to ER if symptoms worsen refer for cardiology for event pqqtpgrY18.6 Dysmenorrhea, unspecifiedNew Medication: Norethindrone 0.35 mg - 1 by mouth every dayCamila 0.35 mg - 1 by mouth every dayComments:First Day of Period: Start your pills on the first day of your period. Continue to take one pill every day at the same time. With this method, you do not need to use a backup method as the pills are effective in preventing right away. INSTRUCTIONS FOR MISSED PILLS:1 pill < 24 hours late in any week: Take 1 active pill ELGIN and continue pack as usual. Missed 1 or more active pills (>24 hours late): take 2 pills and continue pack, if more than 3 pills discontinue pack and start new pack with using back up contraception for 1 week. Consider Emergency Contraception if unprotected intercourse occurred within the 5 days prior to missing pill.Call if having: Severe abdominal pain or tenderness in the lower abdomenChest pain, sharp, sudden shortness of breath or coughing up bloodHeadache,severe and sudden, or vomiting, dizziness or faintnessEyesight problems, such as sudden blurred or doubled vision or flashes of lightSevere pain or swelling in calf or groinAbsence of menses or persistent irregular bleedingFollow up:4 moG43.009 Migraine without aura, not intractable, without status migrainosusComments: monitor for qzkigdwnxC03.49 Family history of ischemic heart disease and other diseases of the circulatory systemComments:check labsL70.9 Acne, unspecifiedNew Medication:Retin-A 0.05 % - apply at bedtime as directedComments:didn't tolerate doxycycline face wash with salicylic acid 1-2 a day (Neutragena, Aveeno , Dove, Cerave), less often if skin becomes irritated/dry, use sensitive skin lotions/personal products/make up that don't clog pores Reviewed adverse side effects of medication. Advised to call the office if experiencing symptoms. Patient verbalized understanding.AllComments:Medication Management Patient Understands medications she's taking? Yes No Are there Barriers to Adherence? Yes No Has the patient been asked about herbal supplements and therapies, and OTC meds? Yes No Functional Status Description No Information Available Mental Status Description No Information Available Referrals Description No Information Available
--- OUTSIDE RECORDS SUMMARY | 2019-08-28 16:45 | XMS REPORT | Continuity of Care Document ---
:1995 External Reference #:[id number] Author Name LI Vogt (transmitted by agent of provider Trevor Abel) Address [address] [facility] [address] [place] [address] Care Team Providers Name Role Phone Website Care Team Information [employer]r Unavailable Problems Active Problems Provider Date Allergy to other foods Trevor Abel MD Onset: 12/08/2017 Uncomplicated moderate persistent MANDO Robbins Onset: 12/22/2017 asthma Allergic rhinitis MANDO Robbins Onset: 12/22/2017 Allergic urticaria LI Vogt Onset: 07/09/2019 Allergy to peanut LI Vogt Onset: 07/09/2019 Social History Type Date Description Comments Sex Unknown Tobacco Use Start: Unknown Patient has never smoked Smoking Status Reviewed: 07/09/19 Patient has never smoked Allergies, Adverse Reactions, Alerts Active Allergies Reaction Severity Comments Date Asmanex Nightmares, depression, hallucination 03/07/2018 Inactive Allergies NKDA 12/08/2017 Medications Active Medications SIG Qnty Indications Ordering Provider Date Qvar Redihaler inhale 2 puffs 10.600gm J30.89 Trevor Gong 06/11/2019 twice a day. rinse MD Colten 80mcg/Act Aerosol mouth after use. Zyrtec Allergy take 1 capsule by 30caps J30.89 Trevor Canchola. 06/11/2019 oral route as MD Colten 10mg Capsules needed Epipen 2-Juan Antonio use as directed as 4units Trevor Gong 10/29/2018 needed for MD Colten 0.3mg/0.3ML anaphylaxis. Solution Auto-Inject Xopenex HFA 2 puffs every 4 as Unknown needed 45mcg/Act Aerosol Xopenex use 3 milliliters 72ml Christopher A. in nebulizer josh Abel MD 1.25mg/3ML times a day as Nebulizer needed asthma Benadryl Allergy 1/2 tab every day Unknown as needed 25mg Tablets Setlakin Take 1 Tablet By Unknown Mouth Every Day as 0.15-0.03mg Directed Tablets Immunizations Description No Information Available Vital Signs Date Vital Result Comment 07/09/2019 1:03pm BP Systolic 108 mmHg BP Diastolic 76 mmHg Height 64 inches 5'4" Weight 141.00 lb BMI (Body Mass Index) 24.2 kg/m2 Heart Rate 84 /min Respiratory Rate 16 /min Body Temperature 97.3 F O2 % BldC Oximetry 95 % 06/11/2019 2:06pm BP Systolic 103 mmHg BP Diastolic 66 mmHg Height 64 inches 5'4" Weight 141.50 lb BMI (Body Mass Index) 24.3 kg/m2 Heart Rate 99 /min Respiratory Rate 17 /min Body Temperature 99.4 F O2 % BldC Oximetry 98 % Results Test Acquired Date Facility Test Result H/L Range Note Order 07/09/2019 [facility] Nitric Oxide <pending> PFT Supplies <pending> PFT With Bronchodilator <pending> Procedures Date Code Description Status 07/09/2019 52665 Nitric Oxide Gas Determination Completed 07/09/2019 00987 Bronchodilation Responsiveness Spirometry Pre/Post Completed Bronchodil Adm 06/11/2019 81950 Nitric Oxide Gas Determination Completed 06/11/2019 89275 Bronchodilation Responsiveness Spirometry Pre/Post Completed Bronchodil Adm Medical Devices Description No Information Available Encounters Type Date Location Provider Dx Diagnosis Office Visit 07/09/2019 Saad Stevenson J45.40 Moderate persistent 1:00p Fenst[place]acher, asthma, uncomplicated RPA-C Z91.010 Allergy to peanuts Z91.018 Allergy to other foods L50.0 Allergic urticaria Office Visit 06/11/2019 2:00p MANDO Pandey Z91.018 Allergy to other foods J45.40 Moderate persistent asthma, uncomplicated J30.89 Other allergic rhinitis Assessments Date Code Description Provider 07/09/2019 J45.40 Moderate persistent asthma, Margaret Stevenson Fenstermacher, RPA-C uncomplicated 07/09/2019 Z91.010 Allergy to peanuts Margaret Moraermreginaldr, RPA-C 07/09/2019 Z91.018 Allergy to other foods Margaret Dennisr, RPA-C 07/09/2019 L50.0 Allergic urticaria Margaret Moraermreginaldr, RPA-C 06/11/2019 Z91.018 Allergy to other foods MANDO Robbins 06/11/2019 J45.40 Moderate persistent asthma, MANDO Robbins uncomplicated 06/11/2019 J30.89 Other allergic rhinitis MANDO Robbins Plan of Treatment Future Appointment(s):10/10/2019 3:00 pm - LI Vogt at [facility]/07/2020 - Margaret Milton, JEANE-CJ45.40 Moderate persistent asthma, uncomplicatedComments:Today's NIOX is 31ppb, a significant improvement from 81ppb on 06/11/19. Her PFT continues to show significant reversibility in the small airway. I have reviewed proper technique of using Qvar Redihaler device. I will continue Qvar 80 for now and repeat PFT/NIOX in 3 months. Continue Xopenex as neededfor breakthrough asthma symptoms.Follow up:3 months - w/PFT and NIOX (Patient will be moving in November 2019 once she graduates from [employer])Z91.010 Allergy to peanutsComments:Continue strict avoidance of peanut and tree nuts. I will renew EpiPen today.Z91.018 Allergy to other orrceK59.0 Allergic urticariaComments:Continue Zyrtec for daily suppression of recurrent hives. Functional Status Description No Information Available Mental Status Description No Information Available Referrals Description No Information Available
[2019-08-28 17:07] VITALS: BP 122/76
[2019-08-28] MEDS ORDERED: Ketorolac INJ* 30 MG/ML 1 ML VIAL IM ONE (18:11)
[2019-08-28] MEDS ORDERED: Ondansetron ODT TAB* 4 MG SL ONE (18:11)
--- NOTE | 2019-08-28 18:11 | UC ---
General HPI - HPI Summary HPI Summary: 24yo female presenting with mother for right wrist pain x3-4 days since she "slipped and fell on black ice." States the pain radiates into her hand. Mother states the dorsal aspect of the hand appears swollen but patient is unsure. Denies bruising. Notes increased pain with wrist movement but denies decreased ROM. Denies numbness and tingling. Patient also notes "unrelated" she "thinks she might have the stomach bug that her friends have." Notes nausea. Denies vomiting, diarrhea, and abdominal pain. Denies chance of . Denies decreased appetite. Denies URI symptoms and cough. Denies fever and chills. She also notes a "constant all over headache" for the last 3 days and thinks the nausea could also be from that. Denies vision changes and photophobia. Taking ibuprofen without relief. Last dose was yesterday. - History of Current Complaint Chief Complaint: UCUpperExtremity Stated Complaint: NAUSEA, HEADACHE, WRIST INJURY Hx Obtained From: Patient, Family/Layout Mechanic - mother Hx Last Menstrual Period: 2 weeks Pain Intensity: 7 - Allergy/Home Medications Allergies/Adverse Reactions: Allergies Allergy/AdvReac Type Severity Reaction Status Date / Time sesame seed Allergy Anaphylatic Verified 08/28/19 17:08 Shock shellfish derived Allergy Anaphylatic Verified 08/28/19 17:08 Shock Tree Nuts Allergy Anaphylatic Verified 08/28/19 17:08 Shock PEANUTS Allergy Anaphylatic Uncoded 08/28/19 17:08 Shock Home Medications: Home Medications Levalbuterol HFA INHALER* [Xopenex Hfa Inhaler*] 2 puff INH QID PRN 12/14/17 [ History Confirmed 08/28/19] Levonorgestrel-Ethin Estradiol [Levonorgestrel and Ethiny 90-20 Mcg] 1 tab PO DAILY 03/27/19 [History Confirmed 08/28/19] Ondansetron HCl [Zofran 4 MG TAB] 4 mg PO Q6H PRN #12 tab 08/28/19 [Rx] PMH/Surg Hx/FS Hx/Imm Hx - Surgical History Surgical History: Yes Surgery Procedure, Year, and Place: WISDOM TEETH EXTRACTION - Family History Known Family History: Positive: Cardiac Disease, Other - thyroid problems, Non- Contributory Family History: hypothyrodism - Social History Alcohol Use: None Substance Use Type: None Smoking Status (MU): Never Smoked Tobacco - Immunization History Most Recent Influenza Vaccination: 2016 Most Recent Tetanus Shot: UTD Vaccination Up to Date: Yes Review of Systems All Other Systems Reviewed And Are Negative: Yes Constitutional: Positive: Negative Eyes: Positive: Negative ENT: Positive: Negative Respiratory: Positive: Negative Cardiovascular: Positive: Negative Gastrointestinal: Positive: Nausea. Negative: Abdominal Pain, Vomiting, Diarrhea Genitourinary: Positive: Negative Musculoskeletal: Positive: Arthralgia - right wrist pain, Edema - dorsal right hand. Negative: Decreased ROM Neurological/Mental Status: Positive: Headache. Negative: Paresthesia, Numbness Physical Exam - Summary Physical Exam Summary: Vital Signs Reviewed: Yes A+Ox3, no distress, well-appearing Eyes: Conjunctiva Clear, PERRLA, EOM intact and full ENT: Hearing grossly normal, TM x 2 clear, moist, uvula midline, no exudate, no erythema Neck: Positive: Supple Respiratory: Positive: No respiratory distress, No accessory muscle use + CTA throughout no w/r Cardiovascular: RRR nl s1, s2 no m/r Musculoskeletal Exam: CRYSTAL x 4 without difficulty, +TTP of right right and hand, no edema, no erythema or ecchymosis, sensation grossly intact, wrist flexion and extension intact and full b/l, handgrip strength equal b/l, strong radial pulses, cap refill <2sec Neurological: Positive: Alert Psychological: Positive: age appropriate behavior Skin: Positive: no rash, no ecchymosis Vital Signs: Initial Vital Signs Temp 98.9 F 08/28/19 17:02 Pulse 87 08/28/19 17:02 Resp 16 08/28/19 17:02 BP 122/76 08/28/19 17:02 Pulse Ox 100 08/28/19 17:02 Diagnostics - Radiology right hand/wrist Radiology Interpretation Completed By: Radiologist Summary of Radiographic Findings: REPORT: #. Negative for fracture or focal osseous lesions. #. Normal articular alignment and preserved joint spaces. #. Unremarkable soft tissue contours. IMPRESSION: #. Negative exam. Course/Dx - Course Course Of Treatment: Patient radiographs negative. Discussed radiographs with patient and likely wrist sprain. Instructed to continue with rest, ice, elevation. I provided the patient with a cockup splint as well. Patient also received Zofran and Toradol injection for relief of headache and nausea. Patient stated relief and full resolution of symptoms. Per eye patient with prescription for Zofran for home for nausea. Instructed to continue with OTC analgesics as directed for pain relief. Patient voiced understanding and agreement with treatment plan. - Diagnoses Provider Diagnosis: Sprain of right wrist, Headache, Nausea Discharge ED - Sign-Out/Discharge Documenting (check all that apply): Patient Departure All imaging exams completed and their final reports reviewed: No Studies - Discharge Plan Condition: Stable Disposition: HOME Prescriptions: Ondansetron HCl [Zofran 4 MG TAB] 4 mg PO Q6H PRN #12 tab PRN Reason: Nausea/Vomiting Patient Education Materials: Acute Headache (ED), Wrist Sprain (ED) Forms: *School Release Referrals: Care [facility] [Outside] - If Needed Christopher Adams MD [Medical Doctor] - If Needed Additional Instructions: As discussed, the xrays did not show any abnormalities. Rest, ice, elevate, and use the wrist splint to help alleviate pain. You may also take over the counter pain medications as directed. Follow up with your primary care provider or orthopedic referral listed below if pain persists. You may continue to take zofran as directed for nausea. You may take ibuprofen or tylenol if headache recurs. Do not take any more ibuprofen today. Go to the emergency room with any new or worsening symptoms. - Billing Disposition and Condition Condition: STABLE Disposition: Home
== END 2019-08-28 18:45 | disposition home or self-care (01) ==
LOC: UCEAST 16:37
DX: S63.501A Unspecified sprain of right wrist, initial encounter (principal); R51 Headache; R11.0 Nausea; W00.0XXA Fall on same level due to ice and snow, initial encounter; Y92.9 Unspecified place or not applicable; Z91.09 Other allergy status, other than to drugs and biological substances; Z91.013 Allergy to seafood; Z91.010 Allergy to peanuts; Z91.018 Allergy to other foods
CPT/HCPCS: 96372; 99212; A9270-GY; G0463; J1885